=== PATIENT | male | born 1980 | race African-American/Black ===

== ENCOUNTER 2017-01-01 02:42 | Emergency (ER) ==
[2017-01-01 02:52] VITALS: BP 137/90; TEMP 97.4; BMI 32.5
[2017-01-01] MEDS ORDERED: NORFLEX IM STA (03:18)
[2017-01-01] MEDS ORDERED: TORADOL IM STA (03:18)
--- NOTE | 2017-01-01 03:24 | ED.PDOC ---
General ED Provider: Dr. SAVANAH CHINO Chief Complaint: Non-specific Complaint Stated Complaint: Pateint states that he has been having muscle spasms in legs and arms for approximately one month. The spasms started one hour ago and are more intense. States it is due to heavy lifting at work. Time Seen by Physician: 03:17 Mode of Arrival: Walk-In Information Source: Patient Exam Limitations: No limitations Nursing and Triage Documentation Reviewed and Agree: Yes Musculoskeletal Complaint Exam - Lower Extremity Complaint/Exam Location of Pain: Reports: Right, Left, Thigh Mechanism of Injury: Reports: Other (heavy lifting ) Onset/Duration: 1 month Symptoms Are: Still present Initial Severity: Moderate Current Severity: Severe Location: Reports: Diffuse Character: Reports: Spasmodic Alleviating: Reports: Rest Aggravating: Reports: Movement, Prolonged standing Able to Bear Weight: Yes Associated Signs and Symptoms: Denies: Swelling, Redness, Bruising, Fever, Weakness, Numbness, Tingling DVT Risk Factors: Reports: None Septic Arthritis Risk Factors: Reports: None Related Surgical History: Reports: None Lower Extremity Findings: Present: Limited range of motion (due to spasms ) Compartment Syndrome Risk Factors: Present: Pain. Absent: Paralysis, Pallor, Pulselessness, Paresthesias Jennifer's Sign Present: No Differential Diagnoses: Strain, Sprain Review of Systems - Review Of Systems Constitutional: Reports: No symptoms Eyes: Reports: No symptoms Ears, Nose, Mouth, Throat: Reports: No symptoms Respiratory: Reports: No symptoms Cardiac: Reports: No symptoms GI: Reports: No symptoms : Reports: No symptoms Musculoskeletal: Reports: Muscle pain Skin: Reports: No symptoms Neurological: Reports: Anxiety Endocrine: Reports: No symptoms Hematologic/Lymphatic: Reports: No symptoms All Other Systems: Reviewed and Negative Past Medical History - Past Medical History Previously Healthy: Yes Endocrine: Reports: None Cardiovascular: Reports: None Respiratory: Reports: None Hematological: Reports: None Gastrointestinal: Reports: None Genitourinary: Reports: None Neuro/Psych: Reports: None Musculoskeletal: Reports: Other Cancer: Reports: None - Surgical History General Surgical History: Reports: Orthopedic (right arm) - Family History Family History: Reports: Unknown - Social History Smoking Status: Current every day smoker Hx Substance Use: No Alcohol Screening: Occasionally - Immunizations Tetanus Shot up to Date: Yes Physical Exam - Physical Exam Appearance: Ill-appearing, Obese Ill-appearing: Mild Pain Distress: Severe Neck: Supple Respiratory: Airway patent, Breath sounds clear, Breath sounds equal, Respirations nonlabored Cardiovascular: RRR, Pulses normal, No rub, No murmur GI/: Soft, Nontender Musculoskeletal: Limited ROM (Flextion on the Lower ext causes spasms ) Skin: Warm, Dry, Normal color Neurological: Sensation intact, Motor intact, Reflexes intact, Alert, Oriented Psychiatric: Anxious Re-Evaluation - Re-Evaluation Time of Re-Evaluation: 04:28 Status: Improved Pain Level: better Critical Care Note - Critical Care Note Total Time (mins): 0 Course - Course Hematology/Chemistry: 01/01/17 03:30 01/01/17 03:30 Orders, Labs, Meds: Lab Review 01/01/17 03:30 WBC 5.35 RBC 4.30 L Hgb 12.8 L Hct 38.6 L MCV 89.8 MCH 29.8 MCHC 33.2 RDW Coeff of Caroline 12.4 Plt Count 206 Immature Gran % (Auto) 0.2 Neut % (Auto) 43.7 Lymph % (Auto) 36.3 [place] % (Auto) 9.9 Eos % (Auto) 9.0 H Baso % (Auto) 0.9 Immature Gran # (Auto) 0.0 Neut # 2.3 Lymph # 1.9 [place] # 0.5 Eos # 0.5 Baso # 0.1 Sodium 140 Potassium 4.1 Chloride 109 H Carbon Dioxide 23 Anion Gap 12.1 BUN 17 Creatinine 0.94 Estimated GFR (MDRD) 109.00 BUN/Creatinine Ratio 18.08 Glucose 98 Calcium 8.9 Magnesium 2.0 Total Bilirubin 0.41 AST 22 ALT 19 Alkaline Phosphatase 85 Total Protein 6.8 Albumin 3.5 Globulin 3.3 Albumin/Globulin Ratio 1.06 Orders Category Date Time Status CBC W/ AUTO DIFF Stat LAB 01/01/17 03:30 Completed COMPREHENSIVE METABOLIC PANEL Stat LAB 01/01/17 03:30 Completed MAGNESIUM Stat LAB 01/01/17 03:30 Completed Ketorolac Tromethamine [Toradol] MEDS 01/01/17 03:18 Discontinued 60 mg IM ONCE STA Orphenadrine Citrate [Norflex] MEDS 01/01/17 03:18 Discontinued 60 mg IM ONCE STA Medications Discontinued Medications Generic Name Dose Route Start Last Admin Trade Name Freq PRN Reason Stop Dose Admin Ketorolac Tromethamine 60 mg 01/01/17 03:18 01/01/17 03:28 Toradol IM 01/01/17 03:19 60 mg ONCE STA Administration Orphenadrine Citrate 60 mg 01/01/17 03:18 01/01/17 03:29 Norflex IM 01/01/17 03:19 60 mg ONCE STA Administration Vital Signs: Temp Pulse Resp BP Pulse Ox 01/01/17 02:44 97.4 F L 75 18 137/90 96 Departure - Departure Time of Disposition: 04:00 Disposition: HOME SELF-CARE Discharge Problem: Muscle spasm Instructions: Muscle Spasm (ED) Condition: Fair Pt referred to PMD for follow-up: Yes Additional Instructions: Rest Take medications as prescribed Follow up with PCP in 3 days Prescriptions: Cyclobenzaprine HCl [Flexeril] 10 mg PO TID PRN #20 tablet PRN Reason: Muscle spasms Ibuprofen 800 mg PO TID #30 tablet Allergies/Adverse Reactions: Allergies tramadol Adverse Reaction (Verified 01/01/17 02:52) Hives Home Medications: Ambulatory Orders Cyclobenzaprine HCl [Flexeril] 10 mg PO TID PRN #20 tablet 01/01/17 Ibuprofen 800 mg PO TID #30 tablet 01/01/17 Disposition Discussed With: Patient, Family
[2017-01-01 03:37] LABS: BASOPHILS # (AUTO) 0.1 K/uL (0-0.2); BASOPHILS % (AUTO) 0.9 % (0.0-3.0); EOSINOPHILS # (AUTO) 0.5 K/ul (0.0-0.7); HEMATOCRIT 38.6 % (42.0-52.0); HEMOGLOBIN 12.8 g/dl (14.0-18.0); IMMATURE GRANULOCYTE % (AUTO) 0.2 % (0.0-5.0); LYMPHOCYTES # (AUTO) 1.9 K/uL (0.60-3.4); LYMPHOCYTES % (AUTO) 36.3 (10.0-50.0); MEAN CORPUSCULAR HEMOGLOBIN 29.8 pg (27.0-31.0); MEAN CORPUSCULAR HGB CONC 33.2 (31.8-35.4); MEAN CORPUSCULAR VOLUME 89.8 fl (80.0-94.0); MONOCYTES # (AUTO) 0.5 K/uL (0.4-2.0); MONOCYTES % (AUTO) 9.9 (0-10); NEUTROPHILS # (AUTO) 2.3 K/ul (2.0-6.9); NEUTROPHILS % (AUTO) 43.7; PLATELET COUNT 206 10^3/uL (140-440); WHITE BLOOD COUNT 5.35 K/ul (4.2-10.2)
[2017-01-01 03:57] LABS: ALBUMIN 3.5 g/dL (3.4-5.0); ALBUMIN/GLOBULIN RATIO 1.06; ANION GAP 12.1; BILIRUBIN,TOTAL 0.41 mg/dL (0.00-1.20); BUN/CREATININE RATIO 18.08; CALCIUM 8.9 mg/dL (8.2-10.2); CREATININE 0.94 mg/dL (0.60-1.10); POTASSIUM 4.1 mmol/L (3.5-5.1); TOTAL PROTEIN 6.8 g/dL (6.4-8.2)
== END 2017-01-01 04:30 | disposition home or self-care (01) ==
LOC: ED 02:42
DX: M62.838 Other muscle spasm (principal); F17.210 Nicotine dependence, cigarettes, uncomplicated
CPT/HCPCS: 36415; 80053; 83735; 85025; 96372; 99283

== ENCOUNTER 2017-01-05 03:56 | Emergency (ER) ==
[2017-01-05 03:57] VITALS: BMI 32.5
[2017-01-05 04:05] VITALS: BP 122/78; TEMP 97.3
[2017-01-05 04:48] LABS: BASOPHILS # (AUTO) 0.1 K/uL (0-0.2); BASOPHILS % (AUTO) 1.3 % (0.0-3.0); EOSINOPHILS # (AUTO) 0.1 K/ul (0.0-0.7); EOSINOPHILS % (AUTO) 2.4 % (0.0-7.0); HEMATOCRIT 43.6 % (42.0-52.0); HEMOGLOBIN 15.1 g/dl (14.0-18.0); IMMATURE GRANULOCYTE % (AUTO) 0.2 % (0.0-5.0); LYMPHOCYTES # (AUTO) 2.5 K/uL (0.60-3.4); MEAN CORPUSCULAR HEMOGLOBIN 30.3 pg (27.0-31.0); MEAN CORPUSCULAR HGB CONC 34.6 (31.8-35.4); MEAN CORPUSCULAR VOLUME 87.4 fl (80.0-94.0); MONOCYTES # (AUTO) 0.5 K/uL (0.4-2.0); MONOCYTES % (AUTO) 9.2 (0-10); NEUTROPHILS # (AUTO) 2.2 K/ul (2.0-6.9); NEUTROPHILS % (AUTO) 40.9; PLATELET COUNT 263 10^3/uL (140-440); RED BLOOD COUNT 4.99 10^6/ul (4.70-6.10); WHITE BLOOD COUNT 5.33 K/ul (4.2-10.2)
[2017-01-05 05:07] LABS: ALBUMIN/GLOBULIN RATIO 0.98; ANION GAP 21.7; BILIRUBIN,TOTAL 0.37 mg/dL (0.00-1.20); BUN/CREATININE RATIO 14.73; CALCIUM 9.5 mg/dL (8.2-10.2); CREATININE 0.95 mg/dL (0.60-1.10); POTASSIUM 3.7 mmol/L (3.5-5.1); TOTAL PROTEIN 8.1 g/dL (6.4-8.2)
[2017-01-05 05:19] LABS: ERYTHROCYTE SEDIMENTATION RATE 20 mm/hr (0-15); ESR INTERNAL QC INTERNAL QC VALID
--- NOTE | 2017-01-05 06:33 | ED.PDOC ---
General Stated Complaint: my legs have been cramping for a month--that other doctor gave me flexeril but i couldnt afford it Time Seen by Physician: 04:00 Mode of Arrival: Walk-In Information Source: Patient Exam Limitations: No limitations Nursing and Triage Documentation Reviewed and Agree: Yes <JACQUELINE DENNIS - Last Filed: 01/05/17 06:31> <VALERIA JONES - Last Filed: 01/05/17 08:21> ED Provider: Dr. VALERIA JONES (JACQUELINE DENNIS) (VALERIA JONES) Chief Complaint: Extremity Pain/Injury Musculoskeletal Complaint Exam - Lower Extremity Complaint/Exam Location of Pain: Reports: Right, Left, Leg Mechanism of Injury: Reports: No known trauma Symptoms Are: Still present Onset of Pain: Reports: Immediate Initial Severity: Mild Current Severity: Mild Location: Reports: Discrete (bilateral legs) Character: Reports: Dull, Aching Alleviating: Reports: Rest Aggravating: Reports: None Able to Bear Weight: Yes Associated Signs and Symptoms: Denies: Swelling, Redness, Bruising, Fever, Weakness, Numbness, Tingling DVT Risk Factors: Reports: None Septic Arthritis Risk Factors: Reports: None Related Surgical History: Reports: None Lower Extremity Findings: Absent: Swelling, Ecchymosis, Abnormal contour, Rotation, Ligamentous instability, Laceration, Erythema, Warmth, Blisters, Other joint pain, Foreign body, Tenderness, Limited range of motion NV Bundle Intact Distal to Injury: No Compartment Syndrome Risk Factors: Present: Pain. Absent: Paralysis, Pallor, Pulselessness, Paresthesias Jennifer's Sign Present: No Differential Diagnoses: Other <JACQUELINE DENNIS - Last Filed: 01/05/17 06:31> Review of Systems - Review Of Systems Constitutional: Reports: No symptoms Eyes: Reports: No symptoms Ears, Nose, Mouth, Throat: Reports: No symptoms Respiratory: Reports: No symptoms Cardiac: Reports: No symptoms GI: Reports: No symptoms : Reports: No symptoms Musculoskeletal: Reports: No symptoms Skin: Reports: No symptoms Neurological: Reports: No symptoms Endocrine: Reports: No symptoms Hematologic/Lymphatic: Reports: No symptoms All Other Systems: Reviewed and Negative <JACQUELINE DENNIS - Last Filed: 01/05/17 06:31> Past Medical History - Past Medical History Previously Healthy: Yes Endocrine: Reports: None Cardiovascular: Reports: None Respiratory: Reports: None Hematological: Reports: None Gastrointestinal: Reports: None Genitourinary: Reports: None Neuro/Psych: Reports: None Musculoskeletal: Reports: Other Cancer: Reports: None - Surgical History General Surgical History: Reports: Orthopedic (right arm) - Family History Family History: Reports: Unknown - Social History Smoking Status: Current every day smoker Hx Substance Use: No Alcohol Screening: Occasionally Lives: With family - Immunizations Tetanus Shot up to Date: Yes <JEANNIEJACQUELINE - Last Filed: 01/05/17 06:31> Physical Exam - Physical Exam Appearance: Well-appearing, No pain distress, Well-nourished Pain Distress: Mild Eyes: KAVIN, EOMI, Conjunctiva clear ENT: Ears normal, Nose normal, Oropharynx normal Neck: Supple Respiratory: Airway patent, Breath sounds clear, Breath sounds equal, Respirations nonlabored Cardiovascular: RRR, Pulses normal, No rub, No murmur GI/: Soft, Nontender, No masses, Bowel sounds normal, No Organomegaly Musculoskeletal: Calf tenderness Skin: Warm, Dry, Normal color Neurological: Sensation intact, Motor intact, Reflexes intact, Cranial nerves intact, Alert, Oriented Psychiatric: Affect appropriate, Mood appropriate <JEANNIEJACQUELINE - Last Filed: 01/05/17 06:31> Physician Notification - Case Discussed Physician Notified: dr jones Time of Notification: 07:00 <JACQUELINE DENNIS - Last Filed: 01/05/17 06:31> Critical Care Note - Critical Care Note Total Time (mins): 0 <VALERIA JONES - Last Filed: 01/05/17 08:21> Course - Course Hematology/Chemistry: 01/05/17 04:47 01/05/17 04:47 <JACQUELINE DENNIS - Last Filed: 01/05/17 06:31> - Course Hematology/Chemistry: 01/05/17 04:47 01/05/17 04:47 <VALERIA JONES - Last Filed: 01/05/17 08:21> - Course Orders, Labs, Meds: Lab Review 01/05/17 04:47 WBC 5.33 RBC 4.99 Hgb 15.1 Hct 43.6 MCV 87.4 MCH 30.3 MCHC 34.6 RDW Coeff of Caroline 12.4 Plt Count 263 Immature Gran % (Auto) 0.2 Neut % (Auto) 40.9 Lymph % (Auto) 46.0 [place] % (Auto) 9.2 Eos % (Auto) 2.4 Baso % (Auto) 1.3 Immature Gran # (Auto) 0.0 Neut # 2.2 Lymph # 2.5 [place] # 0.5 Eos # 0.1 Baso # 0.1 ESR 20 H Sodium 144 Potassium 3.7 Chloride 102 Carbon Dioxide 24 Anion Gap 21.7 BUN 14 Creatinine 0.95 Estimated GFR (MDRD) 108.00 BUN/Creatinine Ratio 14.73 Glucose 107 H Calcium 9.5 Total Bilirubin 0.37 AST 22 ALT 23 Alkaline Phosphatase 90 Total Protein 8.1 Albumin 4.0 Globulin 4.1 Albumin/Globulin Ratio 0.98 Plasma/Serum Alcohol 157.3 H Orders Category Date Time Status BLOOD ALCOHOL Stat LAB 01/05/17 04:47 Completed CBC W/ AUTO DIFF Stat LAB 01/05/17 04:47 Completed COMPREHENSIVE METABOLIC PANEL Stat LAB 01/05/17 04:47 Completed ESR Stat LAB 01/05/17 04:47 Completed ULTRASOUND VENOUS SCAN HARRY LEGS [U/S VENOUS SCAN HARRY RADS 01/05/17 04:21 Taken LEGS] Stat (JACQUELINE DENNIS) (VALERIA JONES) Vital Signs: Temp Pulse Resp BP Pulse Ox 01/05/17 03:57 97.3 F L 106 H 18 122/78 96 (JACQUELINE DNENIS) (VALERIA JONES) Departure <JACQUELINE DENNIS - Last Filed: 01/05/17 06:31> - Departure Time of Disposition: 08:20 Pt referred to PMD for follow-up: No <VALERIA JONES - Last Filed: 01/05/17 08:21> - Departure Disposition: HOME SELF-CARE Discharge Problem: Pain of lower extremity Instructions: Arthralgia (ED), Leg Pain (ED) Condition: Good Additional Instructions: Please call your Family Physician as soon as possible to schedule a follow-up appointment. Allergies/Adverse Reactions: Allergies tramadol Adverse Reaction (Verified 01/05/17 04:28) Hives Home Medications: Ambulatory Orders Ibuprofen 800 mg PO TID #30 tablet 01/01/17
--- NOTE | 2017-01-05 08:22 | US ---
EXAM: Ultrasound venous Doppler bilateral lower extremity HISTORY: Leg pain COMPARISON: None TECHNIQUE: Venous duplex ultrasound of the right and left lower extremity was performed using color , guan-scale, and Doppler flow imaging. FINDINGS: There is normal color flow and guan scale appearance of the right and left common femoral , greater saphenous, profunda femoral, femoral, popliteal, peroneal, posterior tibial, and anterior tibial veins without evidence of intraluminal thrombus. Compression and augmentation is normal. No reflux is identified. IMPRESSION: No right or left lower extremity deep venous thrombosis.
== END 2017-01-05 08:30 | disposition home or self-care (01) ==
LOC: ED 03:56
DX: M79.662 Pain in left lower leg (principal); M79.661 Pain in right lower leg; R25.2 Cramp and spasm; F17.210 Nicotine dependence, cigarettes, uncomplicated
CPT/HCPCS: 36415; 80053; 80307; 85025; 85651; 99283

== ENCOUNTER 2017-01-20 12:28 | Emergency (ER) ==
[2017-01-20 12:28] VITALS: BMI 32.5
[2017-01-20 12:34] VITALS: BP 146/85; TEMP 98
--- NOTE | 2017-01-20 12:59 | ED.PDOC ---
General ED Provider: Dr. VALERIA MURRIETA Chief Complaint: Back Pain Stated Complaint: back pain Time Seen by Physician: 12:33 (seen with michael) Mode of Arrival: Walk-In Information Source: Patient Exam Limitations: No limitations Nursing and Triage Documentation Reviewed and Agree: Yes Review of Systems - Review Of Systems Constitutional: Reports: No symptoms Eyes: Reports: No symptoms Ears, Nose, Mouth, Throat: Reports: No symptoms Respiratory: Reports: No symptoms Cardiac: Reports: No symptoms GI: Reports: No symptoms : Reports: No symptoms Musculoskeletal: Reports: Back pain Skin: Reports: No symptoms Neurological: Reports: No symptoms Endocrine: Reports: No symptoms Hematologic/Lymphatic: Reports: No symptoms All Other Systems: Reviewed and Negative Past Medical History - Past Medical History Previously Healthy: Yes Endocrine: Reports: None Cardiovascular: Reports: None Respiratory: Reports: None Hematological: Reports: None Gastrointestinal: Reports: None Genitourinary: Reports: None Neuro/Psych: Reports: None Musculoskeletal: Reports: Other Cancer: Reports: None - Surgical History General Surgical History: Reports: Orthopedic (right arm) - Family History Family History: Reports: Unknown - Social History Smoking Status: Current every day smoker Hx Substance Use: No Alcohol Screening: Occasionally - Immunizations Tetanus Shot up to Date: No Physical Exam - Physical Exam Appearance: Well-appearing, No pain distress, Well-nourished Eyes: KAVIN, EOMI, Conjunctiva clear ENT: Ears normal, Nose normal, Oropharynx normal Respiratory: Airway patent, Breath sounds clear, Breath sounds equal, Respirations nonlabored Cardiovascular: RRR, Pulses normal, No rub, No murmur GI/: Soft, Nontender, No masses, Bowel sounds normal, No Organomegaly Musculoskeletal: Normal strength, ROM intact, No edema, No calf tenderness Skin: Warm, Dry, Normal color Neurological: Sensation intact, Motor intact, Reflexes intact, Cranial nerves intact, Alert, Oriented Psychiatric: Affect appropriate, Mood appropriate Critical Care Note - Critical Care Note Total Time (mins): 0 Course - Course Vital Signs: Temp Pulse Resp BP Pulse Ox 01/20/17 12:30 98 F 86 16 146/85 H 96 Departure - Departure Time of Disposition: 12:58 (michael present at all time) Disposition: HOME SELF-CARE Discharge Problem: Backache Instructions: Low Back Strain (ED), Arthralgia (ED), Back Pain (ED) Condition: Good Pt referred to PMD for follow-up: No Additional Instructions: Please call your Family Physician as soon as possible to schedule a follow-up appointment. Allergies/Adverse Reactions: Allergies tramadol Adverse Reaction (Verified 01/20/17 12:30) Hives Home Medications: Ambulatory Orders Nabumetone [Relafen] 500 mg PO BIDWM #6 tablet 01/20/17 Disposition Discussed With: Patient
== END 2017-01-20 13:09 | disposition home or self-care (01) ==
LOC: ED 12:28
DX: M54.9 Dorsalgia, unspecified (principal); F17.210 Nicotine dependence, cigarettes, uncomplicated
CPT/HCPCS: 99283

== ENCOUNTER 2017-02-13 09:37 | Emergency (ER) ==
[2017-02-13 09:37] VITALS: BMI 32.5
[2017-02-13 09:41] VITALS: BP 149/102; TEMP 97.7
--- NOTE | 2017-02-13 09:56 | ED.PDOC ---
General ED Provider: Dr. VALERIA MURRIETA Chief Complaint: Tooth Problem Stated Complaint: tootth pain Time Seen by Physician: 10:00 Mode of Arrival: Walk-In Information Source: Patient Exam Limitations: No limitations Nursing and Triage Documentation Reviewed and Agree: Yes EENT Complaint Exam - Dental/Oral Complaint/Exam Mechanism of Injury: No known trauma Symptoms Are: Still present Timing: Constant Initial Severity: Moderate Current Severity: Moderate Character: Reports: Aching, Throbbing Aggravating: Reports: Cold, Chewing Alleviating: Reports: None Associated Signs and Symptoms: Denies: Swelling, Discharge, Fever, Foul odor, Foul taste in mouth Related History: Reports: Similar episode Cardiac Risk Factors: Reports: None Dental/Oral Surgical History: Reports: None Tooth Findings: Present: Gross decay Cervical Lymphadenopathy Present: No Facial Swelling Present: No Bleeding Present: No Oropharynx Findings: Present: Clots Septal Hematoma: No Foreign Body Present: No Dysphagia Present: No Drooling Present: No Asymmetrical Tonsillar Swelling Present: No Uvula Midline: No Gayle-tonsillar Fluctuence: No Trismus Present: No Palatal Petechiae Present: No Scarlatinaform Rash Present: No Teeth Picture: 1 - decay Differential Diagnoses: Dental Caries Review of Systems - Review Of Systems Constitutional: Reports: No symptoms Eyes: Reports: No symptoms Ears, Nose, Mouth, Throat: Reports: No symptoms Respiratory: Reports: No symptoms Cardiac: Reports: No symptoms GI: Reports: No symptoms : Reports: No symptoms Musculoskeletal: Reports: No symptoms Skin: Reports: No symptoms Neurological: Reports: No symptoms Endocrine: Reports: No symptoms Hematologic/Lymphatic: Reports: No symptoms All Other Systems: Reviewed and Negative Past Medical History - Past Medical History Previously Healthy: Yes Endocrine: Reports: None Cardiovascular: Reports: None Respiratory: Reports: None Hematological: Reports: None Gastrointestinal: Reports: None Genitourinary: Reports: None Neuro/Psych: Reports: None Musculoskeletal: Reports: Other Cancer: Reports: None - Surgical History General Surgical History: Reports: Orthopedic (right arm) - Family History Family History: Reports: Unknown - Social History Smoking Status: Current every day smoker Hx Substance Use: No Alcohol Screening: Occasionally Physical Exam - Physical Exam Appearance: Well-appearing, No pain distress, Well-nourished Eyes: KAVIN, EOMI, Conjunctiva clear ENT: Ears normal, Nose normal, Oropharynx normal Respiratory: Airway patent, Breath sounds clear, Breath sounds equal, Respirations nonlabored Cardiovascular: RRR, Pulses normal, No rub, No murmur GI/: Soft, Nontender, No masses, Bowel sounds normal, No Organomegaly Musculoskeletal: Normal strength, ROM intact, No edema, No calf tenderness Skin: Warm, Dry, Normal color Neurological: Sensation intact, Motor intact, Reflexes intact, Cranial nerves intact, Alert, Oriented Psychiatric: Affect appropriate, Mood appropriate Critical Care Note - Critical Care Note Total Time (mins): 0 Course - Course Vital Signs: Temp Pulse Resp BP Pulse Ox 02/13/17 09:40 97.7 F 91 H 20 149/102 H 98 Departure - Departure Time of Disposition: 09:56 Disposition: HOME SELF-CARE Discharge Problem: Toothache Instructions: Dental Abscess (ED), Toothache (ED) Condition: Good Pt referred to PMD for follow-up: No Additional Instructions: Please call your Family Physician as soon as possible to schedule a follow-up appointment. Allergies/Adverse Reactions: Allergies tramadol Adverse Reaction (Verified 02/13/17 09:41) Hives Home Medications: Ambulatory Orders 1 [No Reported Medications] 02/13/17
== END 2017-02-13 10:15 | disposition home or self-care (01) ==
LOC: ED 09:37
DX: K08.89 Other specified disorders of teeth and supporting structures (principal); K02.7 Dental root caries; F17.210 Nicotine dependence, cigarettes, uncomplicated
CPT/HCPCS: 99282

== ENCOUNTER 2017-02-24 15:56 | Outpatient (CLI) | END 2017-02-24 15:57 | LOC: AMBL 15:56 | PROVIDERS: ATTEND Emergency Medicine | DX: M54.2 Cervicalgia (principal); M54.9 Dorsalgia, unspecified; V43.52XA Car driver injured in collision with other type car in traffic accident, initial encounter ==

== ENCOUNTER 2017-03-30 11:31 | Inpatient (IN) ==
--- NOTE | 2017-03-30 11:52 | ED.PDOC ---
General ED Provider: Dr. DAGMAR REYES JR Chief Complaint: Cough Stated Complaint: GENERAL WEAKNESS WITH COUGH SORE THROAT. CHILLS.[ End ]aching all over dysuria last night 2days 100.7 97 20 9% 132/85 5/10 Time Seen by Physician: 11:51 Mode of Arrival: Walk-In Information Source: Patient, Family Exam Limitations: No limitations Nursing and Triage Documentation Reviewed and Agree: No Review of Systems - Review Of Systems Constitutional: Reports: Chills, Fever, Malaise, Weakness Eyes: Reports: No symptoms Ears, Nose, Mouth, Throat: Reports: No symptoms Respiratory: Reports: Cough, Short of air Cardiac: Reports: No symptoms GI: Reports: No symptoms : Reports: No symptoms Musculoskeletal: Reports: Muscle pain Skin: Reports: No symptoms Neurological: Reports: No symptoms Endocrine: Reports: No symptoms Hematologic/Lymphatic: Reports: No symptoms All Other Systems: Other Past Medical History - Past Medical History Previously Healthy: Yes Endocrine: Reports: None Cardiovascular: Reports: None Respiratory: Reports: None Hematological: Reports: None Gastrointestinal: Reports: None Genitourinary: Reports: None Neuro/Psych: Reports: None Musculoskeletal: Reports: Other Cancer: Reports: None - Surgical History General Surgical History: Reports: Orthopedic (right arm) - Family History Family History: Reports: Unknown - Social History Smoking Status: Current every day smoker Hx Substance Use: No Alcohol Screening: Occasionally - Immunizations Tetanus Shot up to Date: Yes Physical Exam - Physical Exam Appearance: Ill-appearing Ill-appearing: Moderate Pain Distress: Moderate Eyes: KAVIN, EOMI, Conjunctiva clear ENT: Ears normal, Nose normal, Oropharynx normal Neck: Supple Respiratory: Airway patent, Breath sounds equal, Breath sounds diminished, Rhonchi Cardiovascular: RRR, Pulses normal, No rub, No murmur GI/: Soft, Nontender, No masses, Bowel sounds normal, No Organomegaly Musculoskeletal: Normal strength, ROM intact, No edema, No calf tenderness Skin: Warm, Dry, Normal color Neurological: Sensation intact, Motor intact, Reflexes intact, Cranial nerves intact, Alert, Oriented Psychiatric: Anxious Critical Care Note - Critical Care Note Total Time (mins): 5 Course - Course Hematology/Chemistry: 03/30/17 12:25 03/30/17 12:25 Orders, Labs, Meds: Lab Review 03/30/17 03/30/17 03/30/17 11:50 12:05 12:25 WBC 3.87 L RBC 4.42 L Hgb 13.4 L Hct 39.0 L MCV 88.2 MCH 30.3 MCHC 34.4 RDW Coeff of Caroline 12.5 Plt Count 204 Immature Gran % (Auto) 0.5 Neut % (Auto) 53.5 Lymph % (Auto) 20.2 [place] % (Auto) 22.7 H Eos % (Auto) 1.8 Baso % (Auto) 1.3 Immature Gran # (Auto) 0.0 Neut # 2.1 Lymph # 0.8 [place] # 0.9 Eos # 0.1 Baso # 0.1 Sodium 137 Potassium 3.8 Chloride 105 Carbon Dioxide 23 Anion Gap 12.8 BUN 7 Creatinine 1.01 Estimated GFR (MDRD) 100.00 BUN/Creatinine Ratio 6.93 Glucose 87 Lactic Acid Calcium 9.1 Total Bilirubin 0.61 AST 23 ALT 27 Alkaline Phosphatase 78 Total Protein 7.7 Albumin 3.8 Globulin 3.9 Albumin/Globulin Ratio 0.97 Urine Color Yellow Urine Clarity Clear Urine pH 6.0 Ur Specific Commerce 1.015 Urine Protein Negative Urine Glucose (UA) Negative Urine Ketones Negative Urine Blood 1+ Urine Nitrite Negative Urine Bilirubin Negative Urine Urobilinogen 0.2 Ur Leukocyte Esterase Negative Urine Microscopic RBC 2-5 Ur Squamous Epith Cells Not present Urine Opiates Screen Negative Ur Oxycodone Screen Negative Urine Methadone Screen Negative Ur Propoxyphene Screen Negative Ur Barbiturates Screen Negative U Tricyclic Antidepress Negative Ur Phencyclidine Scrn Negative Ur Amphetamine Screen Negative U Methamphetamines Scrn Negative U Benzodiazepines Scrn Negative Urine Cocaine Screen Negative U Cannabinoids Screen Negative Influenza A (Rapid) Negative Influenza B (Rapid) Negative 03/30/17 13:00 WBC RBC Hgb Hct MCV MCH MCHC RDW Coeff of Caroline Plt Count Immature Gran % (Auto) Neut % (Auto) Lymph % (Auto) [place] % (Auto) Eos % (Auto) Baso % (Auto) Immature Gran # (Auto) Neut # Lymph # [place] # Eos # Baso # Sodium Potassium Chloride Carbon Dioxide Anion Gap BUN Creatinine Estimated GFR (MDRD) BUN/Creatinine Ratio Glucose Lactic Acid 5.9 Calcium Total Bilirubin AST ALT Alkaline Phosphatase Total Protein Albumin Globulin Albumin/Globulin Ratio Urine Color Urine Clarity Urine pH Ur Specific Commerce Urine Protein Urine Glucose (UA) Urine Ketones Urine Blood Urine Nitrite Urine Bilirubin Urine Urobilinogen Ur Leukocyte Esterase Urine Microscopic RBC Ur Squamous Epith Cells Urine Opiates Screen Ur Oxycodone Screen Urine Methadone Screen Ur Propoxyphene Screen Ur Barbiturates Screen U Tricyclic Antidepress Ur Phencyclidine Scrn Ur Amphetamine Screen U Methamphetamines Scrn U Benzodiazepines Scrn Urine Cocaine Screen U Cannabinoids Screen Influenza A (Rapid) Influenza B (Rapid) Orders Category Date Time Status ADMIT PATIENT INPATIENT .TO [facility] (NON-MONITORED ADMISSION 03/30/17 12: 47 Active BED) ACTIVITY .Early Mobilization for VTE Prevention CARE 03/30/17 12:47 Active INTAKE & OUTPUT Q8HR CARE 03/30/17 12:47 Active VITAL SIGNS Q4HR CARE 03/30/17 12:47 Active REGULAR DIET DIETARY 03/30/17 Dinner Ordered ED IV/MEDIPORT/POWERPORT .ONCE EMERGENCY 03/30/17 12:43 Active BLOOD CULTURE Stat LAB 03/30/17 12:25 Received CBC W/ AUTO DIFF DAILY@0600 LAB 03/31/17 06:00 Ordered CBC W/ AUTO DIFF DAILY@0600 LAB 04/01/17 06:00 Ordered CBC W/ AUTO DIFF DAILY@0600 LAB 04/02/17 06:00 Ordered CBC W/ AUTO DIFF DAILY@0600 LAB 04/03/17 06:00 Ordered CBC W/ AUTO DIFF DAILY@0600 LAB 04/04/17 06:00 Ordered CBC W/ AUTO DIFF DAILY@0600 LAB 04/05/17 06:00 Ordered CBC W/ AUTO DIFF DAILY@0600 LAB 04/06/17 06:00 Ordered CBC W/ AUTO DIFF DAILY@0600 LAB 04/07/17 06:00 Ordered CBC W/ AUTO DIFF DAILY@0600 LAB 04/08/17 06:00 Ordered CBC W/ AUTO DIFF DAILY@0600 LAB 04/09/17 06:00 Ordered CBC W/ AUTO DIFF DAILY@0600 LAB 04/10/17 06:00 Ordered CBC W/ AUTO DIFF DAILY@0600 LAB 04/11/17 06:00 Ordered CBC W/ AUTO DIFF DAILY@0600 LAB 04/12/17 06:00 Ordered CBC W/ AUTO DIFF DAILY@0600 LAB 04/13/17 06:00 Ordered CBC W/ AUTO DIFF DAILY@0600 LAB 04/14/17 06:00 Ordered CBC W/ AUTO DIFF DAILY@0600 LAB 04/15/17 06:00 Ordered CBC W/ AUTO DIFF DAILY@0600 LAB 04/16/17 06:00 Ordered CBC W/ AUTO DIFF DAILY@0600 LAB 04/17/17 06:00 Ordered CBC W/ AUTO DIFF DAILY@0600 LAB 04/18/17 06:00 Ordered CBC W/ AUTO DIFF DAILY@0600 LAB 04/19/17 06:00 Ordered CBC W/ AUTO DIFF Stat LAB 03/30/17 12:25 Completed CMP [COMPREHENSIVE METABOLIC PANEL] Stat LAB 03/30/17 12:25 Completed COMPREHENSIVE METABOLIC PANEL DAILY@0600 LAB 03/31/17 06:00 Ordered COMPREHENSIVE METABOLIC PANEL DAILY@0600 LAB 04/01/17 06:00 Ordered COMPREHENSIVE METABOLIC PANEL DAILY@0600 LAB 04/02/17 06:00 Ordered COMPREHENSIVE METABOLIC PANEL DAILY@0600 LAB 04/03/17 06:00 Ordered COMPREHENSIVE METABOLIC PANEL DAILY@0600 LAB 04/04/17 06:00 Ordered COMPREHENSIVE METABOLIC PANEL DAILY@0600 LAB 04/05/17 06:00 Ordered COMPREHENSIVE METABOLIC PANEL DAILY@0600 LAB 04/06/17 06:00 Ordered COMPREHENSIVE METABOLIC PANEL DAILY@0600 LAB 04/07/17 06:00 Ordered COMPREHENSIVE METABOLIC PANEL DAILY@0600 LAB 04/08/17 06:00 Ordered COMPREHENSIVE METABOLIC PANEL DAILY@0600 LAB 04/09/17 06:00 Ordered COMPREHENSIVE METABOLIC PANEL DAILY@0600 LAB 04/10/17 06:00 Ordered COMPREHENSIVE METABOLIC PANEL DAILY@0600 LAB 04/11/17 06:00 Ordered COMPREHENSIVE METABOLIC PANEL DAILY@0600 LAB 04/12/17 06:00 Ordered COMPREHENSIVE METABOLIC PANEL DAILY@0600 LAB 04/13/17 06:00 Ordered COMPREHENSIVE METABOLIC PANEL DAILY@0600 LAB 04/14/17 06:00 Ordered COMPREHENSIVE METABOLIC PANEL DAILY@0600 LAB 04/15/17 06:00 Ordered COMPREHENSIVE METABOLIC PANEL DAILY@0600 LAB 04/16/17 06:00 Ordered COMPREHENSIVE METABOLIC PANEL DAILY@0600 LAB 04/17/17 06:00 Ordered COMPREHENSIVE METABOLIC PANEL DAILY@0600 LAB 04/18/17 06:00 Ordered COMPREHENSIVE METABOLIC PANEL DAILY@0600 LAB 04/19/17 06:00 Ordered DRUG SCREEN, URINE, RAPID Stat LAB 03/30/17 12:05 Completed LACTIC ACID Stat LAB 03/30/17 13:00 Completed MOLECULAR GROUP A STREP Stat LAB 03/30/17 11:50 Results RAPID FLU A/B Stat LAB 03/30/17 11:50 Completed SPUTUM CULTURE Stat LAB 03/30/17 12:45 Uncollected STREP SCREEN Stat LAB 03/30/17 11:50 Results UA [URINALYSIS C & S IF INDICATED] Stat LAB 03/30/17 12:05 Completed 0.9 % Sodium Chloride [Saline Flush] MEDS 03/30/17 12:43 Active 1 syr IVF PRN PRN Azithromycin Inj [Zithromax] 500 mg MEDS 03/30/17 13:00 Active 0.9 % Sodium Chloride [Sodium Chloride] 250 ml IV DAILY Ceftriaxone Sodium [Rocephin] 1 gm MEDS 03/31/17 09:00 Active 0.9 % Sodium Chloride [Sodium Chloride] 50 ml IV DAILY Sodium Chloride 0.9% [Sodium Chloride] 1,000 ml MEDS 03/30/17 12:43 Discontinued IV BOLUS RESUSCITATION STATUS Routine OTHERS 03/30/17 12:47 Ordered CHEST, 2 VIEWS PA & LAT Stat RADS 03/30/17 11:51 Completed Medications Generic Name Dose Route Start Last Admin Trade Name Freq PRN Reason Stop Dose Admin Albuterol Sulfate 1 vial 03/30/17 18:00 03/30/17 17:03 Albuterol 0.083% Neb NEB 1 vial RTQ6H VALDEZ Administration Ceftriaxone Sodium 1 gm/ 50 mls @ 75 mls/hr 03/31/17 09:00 Sodium Chloride IV DAILY VALDEZ Azithromycin 500 mg/ Sodium 250 mls @ 125 mls/hr 03/30/17 13:00 03/30/17 13: 20 Chloride IV 125 mls/hr DAILY VALDEZ Administration Ceftriaxone Sodium 1 gm/ 50 mls @ 75 mls/hr 03/30/17 18:53 Sodium Chloride IV 03/30/17 19:32 ONCE STA Potassium Chloride/Dextrose/Sod Cl 1,000 mls @ 83.001 mls/hr 03/30/17 19:00 D5%-1/2ns-Kcl 20 Meq/L Iv Malini IV .Q12H3M VALDEZ Sodium Chloride 1 syr 03/30/17 12:43 03/30/17 13:20 Saline Flush IVF 1 syr PRN PRN Administration To flush IV Discontinued Medications Generic Name Dose Route Start Last Admin Trade Name Freq PRN Reason Stop Dose Admin Sodium Chloride 1,000 mls @ 1,000 mls/hr 03/30/17 12:43 03/30/17 13:20 Sodium Chloride IV 03/30/17 13:42 1,000 mls/hr BOLUS STA Administration Vital Signs: Temp Pulse Resp BP Pulse Ox 03/30/17 11:32 100.7 F H 97 H 20 132/85 97 Departure - Departure Time of Disposition: 12:40 Disposition: ADMITTED INPATIENT Discharge Problem: Pneumonia Qualifiers: Pneumonia type: due to unspecified organism Laterality: right Lung location: middle lobe of lung Qualifier Code: (J18.1) Lobar pneumonia, unspecified organism Condition: Good Pt referred to PMD for follow-up: No (hospitalist) Allergies/Adverse Reactions: Allergies tramadol Adverse Reaction (Verified 02/13/17 09:41) Hives Home Medications: Ambulatory Orders 1 [No Reported Medications] 02/13/17
[2017-03-30 12:11] LABS: BILIRUBIN,URINE Negative (NEGATIVE); KETONES,URINE Negative (NEGATIVE); LEUKOCYTE ESTERASE ,URINE Negative (NEGATIVE); NITRITE,URINE Negative (NEGATIVE); PROTEIN,URINE Negative (NEGATIVE); URINE, BLOOD 1+ (NEGATIVE)
--- NOTE | 2017-03-30 12:14 | DI ---
EXAM: Chest two view, frontal and lateral views. HISTORY: Cough. COMPARISON: 04/23/2016, 06/01/2015. FINDINGS: Heart size is normal. There is no vascular congestion. There is linear consolidation in the left lower lobe which are new. The lungs are otherwise clear without pleural effusion or pneum othorax. No acute osseous abnormality identified. IMPRESSION: Left lower lobe pneumonia. Follow-up is recommended to confirm resolution.
[2017-03-30 12:19] LABS: ADD URINE MICROSCOPIC YES
[2017-03-30 12:23] LABS: FLU INTERNAL QC INTERNAL QC VALID; RAPID FLU A NEGATIVE (NEGATIVE); RAPID FLU B NEGATIVE (NEGATIVE)
[2017-03-30] MEDS ORDERED: SODIUM CHLORIDE 1,000 ML IV STA (12:43)
[2017-03-30 13:03] LABS: COCAIN SCREEN,URINE NEGATIVE (NEGATIVE)
[2017-03-30 13:07] LABS: BASOPHILS # (AUTO) 0.1 K/uL (0-0.2); BASOPHILS % (AUTO) 1.3 % (0.0-3.0); EOSINOPHILS # (AUTO) 0.1 K/ul (0.0-0.7); EOSINOPHILS % (AUTO) 1.8 % (0.0-7.0); HEMOGLOBIN 13.4 g/dl (14.0-18.0); IMMATURE GRANULOCYTE % (AUTO) 0.5 % (0.0-5.0); LYMPHOCYTES # (AUTO) 0.8 K/uL (0.60-3.4); LYMPHOCYTES % (AUTO) 20.2 (10.0-50.0); MEAN CORPUSCULAR HEMOGLOBIN 30.3 pg (27.0-31.0); MEAN CORPUSCULAR HGB CONC 34.4 (31.8-35.4); MEAN CORPUSCULAR VOLUME 88.2 fl (80.0-94.0); MONOCYTES # (AUTO) 0.9 K/uL (0.4-2.0); MONOCYTES % (AUTO) 22.7 (0-10); NEUTROPHILS # (AUTO) 2.1 K/ul (2.0-6.9); NEUTROPHILS % (AUTO) 53.5; PLATELET COUNT 204 10^3/uL (140-440); RED BLOOD COUNT 4.42 10^6/ul (4.70-6.10); WHITE BLOOD COUNT 3.87 K/ul (4.2-10.2)
[2017-03-30] MEDS: ZITHROMAX 500 MG in SODIUM CHLORIDE 250 ML IV SCH (13:20)
[2017-03-30 13:24] LABS: ALBUMIN 3.8 g/dL (3.4-5.0); ALBUMIN/GLOBULIN RATIO 0.97; ANION GAP 12.8; BILIRUBIN,TOTAL 0.61 mg/dL (0.00-1.20); BUN/CREATININE RATIO 6.93; CALCIUM 9.1 mg/dL (8.2-10.2); CREATININE 1.01 mg/dL (0.60-1.10); POTASSIUM 3.8 mmol/L (3.5-5.1); TOTAL PROTEIN 7.7 g/dL (6.4-8.2)
[2017-03-30 14:18] VITALS: BMI 32.8
[2017-03-30] MEDS: ALBUTEROL 0.083% NEB NEB SCH ×2 (17:03→23:05)
[2017-03-30] MEDS ORDERED: ROCEPHIN 1 GM in SODIUM CHLORIDE 50 ML IV STA (18:53)
[2017-03-30] MEDS ORDERED: ROCEPHIN ONE (18:56)
[2017-03-30] MEDS: D5%-1/2NS-KCL 20 MEQ/L IV SOL 1,000 ML IV SCH (19:04)
[2017-03-31 04:50] LABS: BASOPHILS % (AUTO) 0.6 % (0.0-3.0); EOSINOPHILS % (AUTO) 0.6 % (0.0-7.0); HEMATOCRIT 37.9 % (42.0-52.0); HEMOGLOBIN 12.9 g/dl (14.0-18.0); IMMATURE GRANULOCYTE % (AUTO) 0.6 % (0.0-5.0); MEAN CORPUSCULAR HEMOGLOBIN 30.1 pg (27.0-31.0); MEAN CORPUSCULAR VOLUME 88.3 fl (80.0-94.0); MONOCYTES # (AUTO) 0.9 K/uL (0.4-2.0); MONOCYTES % (AUTO) 27.3 (0-10); NEUTROPHILS # (AUTO) 1.2 K/ul (2.0-6.9); NEUTROPHILS % (AUTO) 37.9; PLATELET COUNT 185 10^3/uL (140-440); RED BLOOD COUNT 4.29 10^6/ul (4.70-6.10); WHITE BLOOD COUNT 3.15 K/ul (4.2-10.2)
[2017-03-31 05:11] LABS: ALBUMIN 3.4 g/dL (3.4-5.0); ALBUMIN/GLOBULIN RATIO 0.97; ANION GAP 12.9; BILIRUBIN,TOTAL 0.33 mg/dL (0.00-1.20); BUN/CREATININE RATIO 8.79; CALCIUM 8.6 mg/dL (8.2-10.2); CREATININE 0.91 mg/dL (0.60-1.10); POTASSIUM 3.9 mmol/L (3.5-5.1); TOTAL PROTEIN 6.9 g/dL (6.4-8.2)
[2017-03-31] MEDS: ALBUTEROL 0.083% NEB NEB SCH ×4 (05:19→23:00)
[2017-03-31] MEDS: D5%-1/2NS-KCL 20 MEQ/L IV SOL 1,000 ML IV SCH ×2 (06:40→21:49)
[2017-03-31] MEDS: ROCEPHIN 1 GM in SODIUM CHLORIDE 50 ML IV SCH (08:23)
--- NOTE | 2017-03-31 09:36 | HP ---
CHIEF COMPLAINT: Fever, chills and cough. SOURCE OF HISTORY: Provided by the patient and not a very reliable historian. He could not get the sequence of events. HISTORY OF PRESENT ILLNESS: The patient claimed that the problem began Thursday evening while he was sitting in the car and the car was hot. He subsequently experienced diaphoresis. Since then he had been coughing and with a hot and cold sensation and shaking chills. He also had dysuria and was urinating about every hour. He presented to the emergency room Thursday about 10:32 a.m. The patient was found to have a low grade temperature of 100.7, pulse rate 97 , respiratory rate 20, oxygen saturation 97 at room air, blood pressure 132/85. The patient's chest x-ray revealed a left lower lobe pneumonia, linear consolidation. This is new compared to the x-ray on 04/23/2016. CBC showed mild leukopenia 3,870, WBC mild anemia and markedly elevated monocytes 22.7, upper normal 10. Chemistry was unremarkable. Urinalysis showed 1+ blood, RBC 2 -5, leukocyte esterase negative, nitrite negative, no WBC, squamous epithelia cells not present. Drug screen was negative and influenza A and B rapid were negative. The emergency room physician felt that he needed to be in the hospital, so the patient was admitted with a diagnosis of left lower lobe pneumonitis. PAST PERSONAL HISTORY: The patient fell from a height about 7 or 8 years ago and had comminuted fracture of the right elbow and had surgery, elbow replacement according to him. He had no other previous medical or surgical history that is significant. FAMILY HISTORY: Mother has some heart problems. Note: Mother had [place], as well as grandmother. SOCIAL HISTORY: The patient is and resides with his . He smokes about a half a pack of cigarettes a day and drinks alcoholic beverages about one to two cans every other day and more on weekends. He denies any substance abuse. MEDICATIONS: Prior to this admission was reported as nothing, however when I talked to the patient and examined him he told me that he is taking medication for a fungus for his toes. He doesn't know the name of the medication and he had not taken it since yesterday and had been taking it either one or two months now. I told him to ask his family to bring the medication so we can record it. ALLERGIES: The patient is allergic to Tramadol. REVIEW OF SYSTEMS: CONSTITUTIONAL: The patient has fever and some chills, but no significant fatigue. DEVELOPMENT ADMINISTRATOR: No headaches, no seizure activities or syncopal episode or ataxia. VISUAL: Denies any blurred or double vision on transient loss of vision. AUDITORY: Hearing is adequate and does not have any tinnitus and no pain or drainage. RESPIRATORY: The patient does have some cough and had been coughing more in the last two days. He has some soreness in his abdomen with the cough. CARDIOVASCULAR: Denies any chest pain or chest oppression. No shortness of breath. GASTROINTESTINAL: The appetite seemed to have remained well or good. No nausea or anorexia. No abdominal pain or diarrhea. GENITOURINARY: The patient did complain of pain and frequency on urination. MUSCULOSKELETAL: Denies any significant joint pain or muscular pain, except for the left elbow. INTEGUMENT: No rash or pruritus. ENDOCRINE: Negative. HEMATOLOGIC: No history of prolonged bleeding or easy bruising. PSYCHIATRIC: Affect is acceptable. PHYSICAL EXAMINATION: GENERAL: 36 year old black male admitted to the hospital because of left lower pneumonia and fever and cough with chills. VITAL SIGNS: HEAD: Unremarkable. FACE: Symmetrical and equal with no significant tenderness in the frontal or maxillary sinus areas to palpation under pressure. EYES: Pupils equal/reactive to light. Conjunctivae not pale. Sclerae not icteric. MOUTH: Unremarkable. THROAT: No inflammation, tumors or exudate. NECK: No masses. No bruit. No tenderness. No rigidity. CHEST: Essentially symmetrical and equal with good expansion with no remarkable tenderness. LUNGS: Breath sounds are diminished in both sides. I asked the patient to take a deep breath and it seemed like he is not following well with the instructions. There are no obvious rales. HEART: Audible and regular with good tones. No murmurs. ABDOMEN: Soft with no remarkable tenderness. Bowel sounds are active. LOWER EXTREMITIES: No significant edema of the ankles or legs. The pedal pulses are present. The patient has onychomycosis of the toes, mostly at the big toe. It was when I took his socks off for the examination of the foot is when he told me that he is taking medication for the fungus. UPPER EXTREMITIES: Symmetrical and equal. ASSESSMENT: 1. LEFT LOWER LOBE PNEUMONITIS, COMMUNITY ACQUIRED PNEUMONIA AND MUST BE ATYPICAL SINCE HIS TEMPERATURE IS NOT VERY HIGH. 2. ONYCHOMYCOSIS OF TOES 3. CHRONIC TOBACCO USE AND ABUSE ONE-HALF PACK OF CIGARETTES A DAY 4. CHRONIC ETHANOL USE AND ABUSE 5. ELEVATED BMI 32.8. MTDD
[2017-03-31] MEDS: ZITHROMAX 500 MG in SODIUM CHLORIDE 250 ML IV SCH (10:10)
[2017-03-31] MEDS ORDERED: ZOFRAN 4 MG/2 ML IVP PRN (12:46)
[2017-03-31 13:23] LABS: AMYLASE 55 U/L (25-115); LIPASE 29 U/L (8-78)
[2017-03-31] MEDS ORDERED: TUSSIONEX PO STA (21:43)
[2017-04-01 05:03] LABS: BASOPHILS % (AUTO) 1.3 % (0.0-3.0); EOSINOPHILS # (AUTO) 0.1 K/ul (0.0-0.7); EOSINOPHILS % (AUTO) 2.7 % (0.0-7.0); HEMATOCRIT 37.5 % (42.0-52.0); HEMOGLOBIN 12.9 g/dl (14.0-18.0); IMMATURE GRANULOCYTE % (AUTO) 0.3 % (0.0-5.0); LYMPHOCYTES # (AUTO) 0.9 K/uL (0.60-3.4); LYMPHOCYTES % (AUTO) 30.8 (10.0-50.0); MEAN CORPUSCULAR HEMOGLOBIN 30.4 pg (27.0-31.0); MEAN CORPUSCULAR HGB CONC 34.4 (31.8-35.4); MEAN CORPUSCULAR VOLUME 88.2 fl (80.0-94.0); MONOCYTES # (AUTO) 0.6 K/uL (0.4-2.0); MONOCYTES % (AUTO) 18.4 (0-10); NEUTROPHILS # (AUTO) 1.4 K/ul (2.0-6.9); NEUTROPHILS % (AUTO) 46.5; PLATELET COUNT 180 10^3/uL (140-440); RED BLOOD COUNT 4.25 10^6/ul (4.70-6.10); WHITE BLOOD COUNT 2.99 K/ul (4.2-10.2)
[2017-04-01] MEDS: ALBUTEROL 0.083% NEB NEB SCH ×4 (05:08→23:00)
[2017-04-01 05:27] LABS: ALBUMIN 3.3 g/dL (3.4-5.0); ALBUMIN/GLOBULIN RATIO 0.89; ANION GAP 14.1; BILIRUBIN,TOTAL 0.31 mg/dL (0.00-1.20); BUN/CREATININE RATIO 5.26; CALCIUM 8.4 mg/dL (8.2-10.2); CREATININE 0.95 mg/dL (0.60-1.10); POTASSIUM 4.1 mmol/L (3.5-5.1)
[2017-04-01] MEDS: TUSSIONEX PO SCH ×3 (05:48→18:18)
[2017-04-01] MEDS: D5%-1/2NS-KCL 20 MEQ/L IV SOL 1,000 ML IV SCH (09:29)
[2017-04-01] MEDS: ROCEPHIN 1 GM in SODIUM CHLORIDE 50 ML IV SCH (09:40)
[2017-04-01] MEDS: ZITHROMAX 500 MG in SODIUM CHLORIDE 250 ML IV SCH (10:41)
--- NOTE | 2017-04-01 14:10 | DI ---
EXAM: Two views of the chest. History: Cough. Comparison: Chest radiograph 03/30/2017 Findings: Heart size is within normal limits. Increasing left lower lobe infiltrate. No appreciab le pleural fluid and no pneumothorax. No acute osseous abnormalities. Impression: Increasing left lower lobe infiltrate.
[2017-04-01] MEDS ORDERED: TYLENOL PO PRN (14:55)
[2017-04-01] MEDS: LOVENOX SUBCUT SCH (18:43)
[2017-04-01] MEDS ORDERED: ROCEPHIN 2 GM in SODIUM CHLORIDE 100 ML IV SCH (22:00)
[2017-04-01] MEDS ORDERED: ROCEPHIN ONE (22:36)
[2017-04-02] MEDS: D5%-1/2NS-KCL 20 MEQ/L IV SOL 1,000 ML IV SCH ×2 (01:04→14:38)
[2017-04-02 05:16] LABS: BASOPHILS % (AUTO) 0.5 % (0.0-3.0); HEMATOCRIT 36.6 % (42.0-52.0); HEMOGLOBIN 12.7 g/dl (14.0-18.0); LYMPHOCYTES # (AUTO) 0.9 K/uL (0.60-3.4); MEAN CORPUSCULAR HEMOGLOBIN 30.2 pg (27.0-31.0); MEAN CORPUSCULAR HGB CONC 34.7 (31.8-35.4); MEAN CORPUSCULAR VOLUME 86.9 fl (80.0-94.0); MONOCYTES # (AUTO) 0.5 K/uL (0.4-2.0); MONOCYTES % (AUTO) 22.2 (0-10); NEUTROPHILS # (AUTO) 0.7 K/ul (2.0-6.9); NEUTROPHILS % (AUTO) 33.3; PLATELET COUNT 157 10^3/uL (140-440); RED BLOOD COUNT 4.21 10^6/ul (4.70-6.10); WHITE BLOOD COUNT 2.07 K/ul (4.2-10.2)
[2017-04-02] MEDS: ALBUTEROL 0.083% NEB NEB SCH ×4 (05:20→23:02)
[2017-04-02 05:32] LABS: ALBUMIN 3.3 g/dL (3.4-5.0); ALBUMIN/GLOBULIN RATIO 0.92; ANION GAP 13.1; BILIRUBIN,TOTAL 0.31 mg/dL (0.00-1.20); BUN/CREATININE RATIO 9.8; CALCIUM 8.3 mg/dL (8.2-10.2); CREATININE 1.02 mg/dL (0.60-1.10); POTASSIUM 4.1 mmol/L (3.5-5.1); TOTAL PROTEIN 6.9 g/dL (6.4-8.2)
[2017-04-02] MEDS: TUSSIONEX PO SCH ×2 (05:41→17:33)
[2017-04-02] MEDS ORDERED: TORADOL IVP STA (08:37)
[2017-04-02] MEDS ORDERED: SOLU-CORTEF 250 MG IVP STA (08:38)
[2017-04-02] MEDS: AVELOX 400 MG in PREMIX 250 ML NS 1 BAG IV SCH ×2 (09:00→10:58)
[2017-04-02] MEDS: LOVENOX SUBCUT SCH (09:01)
--- NOTE | 2017-04-02 09:12 | PN ---
DATE OF SERVICE: 03/31/17 The patient was seen in the morning and the nurse did tell me that he had been complaining of pain. I did examine him in the room with the nurse. I made him point to where the pain is and the pain seemed to begin from the middle of the left flank radiating towards the umbilicus. The pain is intermittent and at the time I examined him initially the patient had no pain. Soon after that he had another episode of pain. ABDOMEN: Palpation of the abdomen revealed no significant tenderness and no muscular guarding. The bowel sounds were active. But because of the pain, this patient was kept NPO for further observation to see if the pain would increase. If the pain has increased in intensity and persistent, the patient would undergo further studies such as a CT scan of the abdomen and pelvis. LUNGS: Breath sounds are diminished. I don't hear any rales. I had asked the patient to take a deep breath. He seemed like he is not taking as deep as I would like him to have or maybe that is just as deep as he could get. HEART: Audible and regular with good tones. GENERAL: The patient is not dyspneic, nor tachypneic. VITAL SIGNS: At 9:38 in the morning of 03/31/2017 showed a temperature of 98.4 , pulse 77, blood pressure 136/87, respiratory rate 18, oxygen saturation 98 at room air. ADDITIONAL DICTATION I did come back to the hospital in the evening after the office and the nurse told me that the patient is feeling better with regards to the abdomen and does not have any pain. I did advise the nurse to give him a full liquid, low fat diet and see how he does. GEOFF
--- NOTE | 2017-04-02 09:31 | PCM.CONS ---
CONSULTING PROVIDER: Dr. KATHE NUNEZ ATTENDING PROVIDER: Dr. Yayo KIMBLE DATE OF SERVICE: 04/02/17 SUBJECTIVE: This 36 year old BLACK/ M was hospitalized 03/30/17. This is a black male seen in consultation due to left lower lobe pneumonia. The patient is being treated with IV antibiotics. He has leukopenia and increased monocytes. REVIEW OF SYSTEMS: CONSTITUTIONAL: Fever. No night sweats. No fatigue, malaise, lethargy. HEENT: Eyes: No visual changes. No eye pain. No eye discharge. ENT: No runny nose. No epistaxis. No sinus pain. No odynophagia. No congestion. RESPIRATORY: Cough. No hemoptysis. CARDIOVASCULAR: No angina symptoms. No CHF symptoms. Pleuritic type chest pain. No palpitations. No shortness of breath. GASTROINTESTINAL: Appetite is good. No abdominal pain. No nausea or vomiting. No diarrhea or constipation. No hematemesis. No hematochezia. GENITOURINARY: No urgency. No frequency. No dysuria. No hematuria. No obstructive symptoms. No discharge. No pain. No significant abnormal bleeding. MUSCULOSKELETAL: No musculoskeletal pain; no joint swelling. NEUROLOGICAL: Awake, alert, oriented to time, place and person. No headache. No neck pain. No syncope. No seizures. No dizziness. PSYCHIATRIC: Not anxious. No depression. No suicidal thoughts. No homicidal thoughts. SKIN: No rash. No lesions. No wounds. ENDOCRINE: No unexplained weight loss. No weight gain. HEMATOLOGIC/LYMPHATIC: No anemia. No purpura. No petechiae. No prolonged or excessive bleeding. No palpable lymph nodes. PHYSICAL EXAMINATION: GENERAL: The patient is awake, alert and oriented, lying/sitting in bed in no distress. VITAL SIGNS: Temperature 100.5 F, Pulse 85, Respiratory Rate 16, BP 107/71, Pulse Ox 96% HEENT: Head normocephalic, atraumatic. Eyes: Extraocular muscles are intact. Pupils are equal, round and reactive to light and accommodation. Ears: No lesions. Nose appeared normal. Throat: No exudate or erythema. NECK: Supple. No JVD, no carotid bruit. No lymphadenopathy or thyromegaly. LUNGS: Clear to auscultation. Percussion note normal. Chest symmetrical. HEART: S1, S2, no S3. No murmurs. No cyanosis or clubbing. No ascites. No pericardial rub. Pulses: Dorsalis pedis and posterior tibial pulses +1 both sides. ABDOMEN: Soft. Non-tender. Bowel sounds active. No CVA tenderness. No mass felt. EXTREMITIES: No edema. Full range of motion of all extremities, equal. NEUROLOGIC: No focal deficit. Cranial nerves II through XII are grossly intact. No headache, no double vision or headache. SKIN: Not dry. Intact. Turgor-normal. LYMPHATIC: No palpable lymph nodes/no lymphedema. MUSCULOSKELETAL: Normal joints with no swelling. Muscle tone is normal. LAB REVIEW: 04/02/17 05:14 04/02/17 05:14 04/02/17 05:14: WBC 2.07 L, RBC 4.21 L, Hgb 12.7 L, Hct 36.6 L, MCV 86.9, MCH 30.2, MCHC 34.7, RDW Coeff of Caroline 12.7, Plt Count 157, Immature Gran % (Auto) 0.0, Neut % (Auto) 33.3, Lymph % (Auto) 43.0, [place] % (Auto) 22.2 H, Eos % (Auto ) 1.0, Baso % (Auto) 0.5, Immature Gran # (Auto) 0.0, Neut # 0.7 L, Lymph # 0.9 , [place] # 0.5, Eos # 0.0, Baso # 0.0, Sodium 134 L, Potassium 4.1, Chloride 104, Carbon Dioxide 21, Anion Gap 13.1, BUN 10, Creatinine 1.02, Estimated GFR (MDRD ) 99.00, BUN/Creatinine Ratio 9.80, Glucose 99, Calcium 8.3, Total Bilirubin 0.31, AST 20, ALT 21, Alkaline Phosphatase 64, Total Protein 6.9, Albumin 3.3 L , Globulin 3.6, Albumin/Globulin Ratio 0.92 04/01/17 04:30: Procalcitonin 0.17 ASSESSMENT: VIRAL PNEUMONIA RECOMMENDATIONS/PLAN: 1. 125 mg Solu-Cortef 2. Toradol 30 mg IV for pleurisy, viral infection 3. Stop Azithromycin Plan and coordination of the patient's care discussed in the presence of Heavy Forger Helper and Nurse. EDUCATION: Education carried out about viral infection. Thanks for the referral. Agree with antibiotics. CONDITION: STABLE SCRIBED BY: GUILLERMO FARFAN Windows Mobile Developer scribed while in presence of service performed by Dr. KATHE NUNEZ on 04/02/17 ([id number])
--- NOTE | 2017-04-02 09:43 | PN ---
DATE OF VISIT: 04/01/17 The nurse, February, called me with regards to Mr. Saini. She told me that Mr. Saini feels that he is not getting any better and that I had not seen him. I instructed February to order a chest x-ray for comparison. The patient did have a rise in temperature early in the morning today. The patient on examination was alert and responsive and follows verbal commands. I did try to explain to him that he has a pneumonia and that pneumonia has fever. The pneumonia does not get treated completely in three days. I explained to him that we are giving him an antibiotic for community acquired pneumonia. I asked him about the comment he made that I had not seen him. I did tell him that I was there yesterday when he complained of abdominal pain and examined his abdomen with the nurse. He told me that he could not remember. I told him that is why I stopped his food then after examination for further observation. I did inform him that I am trying what I know to treat him for his pneumonia. However, if he is not satisfied on the way things are that he certainly can change physicians to his choice. LUNGS: Today, again, with no rales that I can hear. I advised him to take a big, big breath or deep one, but I am still not able to hear it well. HEART: Normal sinus rhythm. ABDOMEN: No tenderness. The bowel sounds are active. LOWER EXTREMITIES: He denies any pain in both legs. Medications were reviewed and this patient is receiving Zithromycin 500 mg daily. Ceftriaxone 1 gram IV daily and Tussionex one teaspoon twice a day. He also is receiving Dextrose 5% in 1/2 saline, plus 10 of KCL at 83 cc per hour. This patient will be given Lovenox 40 mg subcutaneously daily beginning today. The patient did spike a temperature at 10 o'clock of 102.3 and by 11:25 was 101.7. I did see him after 1 o'clock. I did review the chest x-ray and it appears to be not any better than the previous. The final reading showed increasing left lower lobe pneumonitis. The patient, however, did not take a good deep breath on this x-ray that was done today. The Procalcitonin was ordered. [facility]
--- NOTE | 2017-04-02 09:55 | PN ---
DATE OF VISIT: 04/02/17 at 8:10 a.m. The patient, when I examined him, was sitting in a chair. He denies any shortness of breath. He claimed that his appetite is decreased. VITAL SIGNS: Early this morning on 04/02/2017 showed a temperature of 100.5, pulse 85, blood pressure 107/71, respiration rate 16, oxygen saturation 96 at room air. LUNGS: Clear to auscultation, questionable rales at the left lower base. No wheezing. HEART: Audible and regular with good tones. No murmurs. LOWER EXTREMITIES: He denies any pain in the legs. LABS: The labs today showed further leukopenia now 2,070. It started at 3,870 on admission 03/30/2017. Monocytes are increased and remained increased. Electrolytes essentially unremarkable, except sodium 134, but not clinically significant. Lowest normal is 135. BUN 10, creatinine 1.02, E GFR 99. I had advised the patient that I would ask Dr. Lynne to see him along with me and manage his case with Dr. Lynne. The patient was agreeable. The influenza A and B quantitative antibody titer is still pending. The blood cultures are still negative. Sputum culture normal dany. The patient's intake at the triage showed that he had coughed for the last two days prior to presenting to the emergency room. I will try to get in touch with his to see if she could give me a further history on this patient. [facility]STCHESTERClarissa
[2017-04-02 12:19] LABS: BILIRUBIN,URINE Negative (NEGATIVE); KETONES,URINE Negative (NEGATIVE); LEUKOCYTE ESTERASE ,URINE Negative (NEGATIVE); NITRITE,URINE Negative (NEGATIVE); PH,URINE 5.5 (5-9); PROTEIN,URINE Negative (NEGATIVE); URINE, BLOOD Trace-lysed (NEGATIVE)
[2017-04-02 12:24] LABS: ADD URINE MICROSCOPIC YES
[2017-04-02] MEDS: ROCEPHIN 2 GM in SODIUM CHLORIDE 100 ML IV SCH (20:46)
[2017-04-03] MEDS: D5%-1/2NS-KCL 20 MEQ/L IV SOL 1,000 ML IV SCH (02:57)
[2017-04-03] MEDS: ALBUTEROL 0.083% NEB NEB SCH ×3 (05:03→17:28)
[2017-04-03 05:07] LABS: BASOPHILS % (AUTO) 0.8 % (0.0-3.0); EOSINOPHILS % (AUTO) 0.4 % (0.0-7.0); HEMATOCRIT 35.6 % (42.0-52.0); HEMOGLOBIN 12.2 g/dl (14.0-18.0); LYMPHOCYTES # (AUTO) 1.4 K/uL (0.60-3.4); LYMPHOCYTES % (AUTO) 55.5 (10.0-50.0); MEAN CORPUSCULAR HEMOGLOBIN 30.2 pg (27.0-31.0); MEAN CORPUSCULAR HGB CONC 34.3 (31.8-35.4); MEAN CORPUSCULAR VOLUME 88.1 fl (80.0-94.0); MONOCYTES # (AUTO) 0.6 K/uL (0.4-2.0); MONOCYTES % (AUTO) 21.7 (0-10); NEUTROPHILS # (AUTO) 0.6 K/ul (2.0-6.9); NEUTROPHILS % (AUTO) 21.6; PLATELET COUNT 156 10^3/uL (140-440); RED BLOOD COUNT 4.04 10^6/ul (4.70-6.10); WHITE BLOOD COUNT 2.54 K/ul (4.2-10.2)
[2017-04-03 05:30] LABS: ALBUMIN 3.1 g/dL (3.4-5.0); ALBUMIN/GLOBULIN RATIO 0.89; ANION GAP 12.1; BILIRUBIN,TOTAL 0.2 mg/dL (0.00-1.20); BUN/CREATININE RATIO 13.48; CALCIUM 8.1 mg/dL (8.2-10.2); CREATININE 0.89 mg/dL (0.60-1.10); POTASSIUM 4.1 mmol/L (3.5-5.1); TOTAL PROTEIN 6.6 g/dL (6.4-8.2)
[2017-04-03] MEDS: TUSSIONEX PO SCH ×2 (05:41→17:36)
[2017-04-03] MEDS: AVELOX 400 MG in PREMIX 250 ML NS 1 BAG IV SCH (09:13)
[2017-04-03] MEDS: LOVENOX SUBCUT SCH (09:16)
--- NOTE | 2017-04-03 14:13 | PCM.CONS ---
CONSULTING PROVIDER: Dr. KATHE NUNEZ ATTENDING PROVIDER: Dr. Yayo KIMBLE DATE OF SERVICE: 04/03/17 SUBJECTIVE: This 36 year old BLACK/ M was hospitalized 03/30/17. pneumonia and the patient condition has improve and feeling a lot better. he is up and about. REVIEW OF SYSTEMS: CONSTITUTIONAL: No night sweats. No fatigue, malaise, lethargy. No fever or chills. HEENT: Eyes: No visual changes. No eye pain. No eye discharge. ENT: No runny nose. No epistaxis. No sinus pain. No odynophagia. No congestion. RESPIRATORY: No cough, no congestion. No hemoptysis. CARDIOVASCULAR: No angina symptoms. No CHF symptoms. No atypical chest pain for CAD. No palpitations. No shortness of breath. GASTROINTESTINAL: No abdominal pain. No nausea or vomiting. No diarrhea or constipation. No hematemesis. No hematochezia. GENITOURINARY: No urgency. No frequency. No dysuria. No hematuria. No obstructive symptoms. No discharge. No pain. No significant abnormal bleeding. MUSCULOSKELETAL: No musculoskeletal pain; no joint swelling. NEUROLOGICAL: Awake, alert, oriented to time, place and person. No headache. No neck pain. No syncope. No seizures. No dizziness. PSYCHIATRIC: Not anxious. No depression. No suicidal thoughts. No homicidal thoughts. SKIN: No rash. No lesions. No wounds. ENDOCRINE: No unexplained weight loss. No weight gain. HEMATOLOGIC/LYMPHATIC: No anemia. No purpura. No petechiae. No prolonged or excessive bleeding. No palpable lymph nodes. PHYSICAL EXAMINATION: GENERAL: The patient is awake, alert and oriented to time, place and person. lying in bed in no distress. VITAL SIGNS: Temperature 98.4 F, Pulse 74, Respiratory Rate 18, BP 129/84, Pulse Ox 95% HEENT: Head normocephalic, atraumatic. Eyes: Extraocular muscles are intact. Pupils are equal, round and reactive to light and accommodation. Ears: No lesions. Nose appeared normal. Throat: No exudate or erythema. NECK: Supple. No JVD, no carotid bruit. No lymphadenopathy or thyromegaly. LUNGS: Clear to auscultation. Percussion note normal. Chest symmetrical. HEART: S1, S2, no S3. No murmurs. No cyanosis or clubbing. No ascites. Pulses: Dorsalis pedis and posterior tibial pulses +1 to +2 both sides. ABDOMEN: Soft. Non-tender. Bowel sounds active. No CVA tenderness. No mass felt. EXTREMITIES: No edema. Full range of motion of all extremities, equal. NEUROLOGIC: No focal deficit. Cranial nerves II through XII are grossly intact. No headache, no double vision or headache. SKIN: Not dry. Intact. Turgor-normal. LYMPHATIC: No palpable lymph nodes/no lymphedema. MUSCULOSKELETAL: Normal joints with no swelling. Muscle tone is normal. LAB REVIEW: 04/03/17 04:37 04/03/17 04:37 04/03/17 04:37: WBC 2.54 L, RBC 4.04 L, Hgb 12.2 L, Hct 35.6 L, MCV 88.1, MCH 30.2, MCHC 34.3, RDW Coeff of Caroline 12.4, Plt Count 156, Immature Gran % (Auto) 0.0, Neut % (Auto) 21.6, Lymph % (Auto) 55.5 H, [facility] % (Auto) 21.7 H, Eos % ( Auto) 0.4, Baso % (Auto) 0.8, Immature Gran # (Auto) 0.0, Neut # 0.6 L, Lymph # 1.4, Baylor # 0.6, Eos # 0.0, Baso # 0.0, Sodium 138, Potassium 4.1, Chloride 109 H, Carbon Dioxide 21, Anion Gap 12.1, BUN 12, Creatinine 0.89, Estimated GFR ( MDRD) 116.00, BUN/Creatinine Ratio 13.48, Glucose 100, Calcium 8.1 L, Total Bilirubin 0.20, AST 20, ALT 19, Alkaline Phosphatase 61, Total Protein 6.6, Albumin 3.1 L, Globulin 3.5, Albumin/Globulin Ratio 0.89 04/02/17 12:05: Urine Color Yellow, Urine Clarity Clear, Urine pH 5.5, Ur Specific [place] 1.010, Urine Protein Negative, Urine Glucose (UA) Negative, Urine Ketones Negative, Urine Blood Trace-lysed, Urine Nitrite Negative, Urine Bilirubin Negative, Urine Urobilinogen 0.2, Ur Leukocyte Esterase Negative, Urine Microscopic RBC 0-2, Ur Squamous Epith Cells Not present ASSESSMENT: 1. Pneumonia clinically resolved likely Mycoplasma RECOMMENDATIONS/PLAN: 1. Agree with present medication and antibiotics 2. 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 CONDITION: Stable SCRIBED BY: Cosmo MARTINEZ scribed while in presence of service performed by Dr. KATHE NUNEZ on 04/03/17 ([id number])
[2017-04-03] MEDS: ROCEPHIN 2 GM in SODIUM CHLORIDE 100 ML IV SCH (20:13)
[2017-04-04] MEDS: ALBUTEROL 0.083% NEB NEB SCH ×4 (00:40→17:08)
[2017-04-04 04:42] LABS: BASOPHILS % (AUTO) 0.8 % (0.0-3.0); EOSINOPHILS # (AUTO) 0.1 K/ul (0.0-0.7); EOSINOPHILS % (AUTO) 5.5 % (0.0-7.0); HEMATOCRIT 38.4 % (42.0-52.0); LYMPHOCYTES # (AUTO) 1.5 K/uL (0.60-3.4); LYMPHOCYTES % (AUTO) 64.3 (10.0-50.0); MEAN CORPUSCULAR HEMOGLOBIN 30.2 pg (27.0-31.0); MEAN CORPUSCULAR HGB CONC 33.9 (31.8-35.4); MEAN CORPUSCULAR VOLUME 89.1 fl (80.0-94.0); MONOCYTES # (AUTO) 0.4 K/uL (0.4-2.0); MONOCYTES % (AUTO) 16.8 (0-10); NEUTROPHILS # (AUTO) 0.3 K/ul (2.0-6.9); NEUTROPHILS % (AUTO) 12.6; PLATELET COUNT 157 10^3/uL (140-440); RED BLOOD COUNT 4.31 10^6/ul (4.70-6.10); WHITE BLOOD COUNT 2.38 K/ul (4.2-10.2)
[2017-04-04 05:08] LABS: ALBUMIN 3.3 g/dL (3.4-5.0); ALBUMIN/GLOBULIN RATIO 0.94; ANION GAP 13.3; BILIRUBIN,TOTAL 0.26 mg/dL (0.00-1.20); BUN/CREATININE RATIO 11.7; CALCIUM 8.4 mg/dL (8.2-10.2); CREATININE 0.94 mg/dL (0.60-1.10); POTASSIUM 4.3 mmol/L (3.5-5.1); TOTAL PROTEIN 6.8 g/dL (6.4-8.2)
[2017-04-04] MEDS: TUSSIONEX PO SCH (05:39)
[2017-04-04] MEDS: AVELOX 400 MG in PREMIX 250 ML NS 1 BAG IV SCH (08:38)
[2017-04-04] MEDS: LOVENOX SUBCUT SCH (08:38)
[2017-04-04 13:50] VITALS: BP 125/85; TEMP 97.4
--- NOTE | 2017-04-06 13:15 | CONS ---
The patient was seen on 04/02/17: Level 5 04/03/17: Intermediate Attending Dr. Agustin TELLEZ
--- NOTE | 2017-04-06 13:24 | DS ---
PATIENT IDENTIFICATION: 36 year old black male admitted to the hospital via the emergency room because of left lower lobe pneumonia. The patient presented to the emergency room because of weakness, cough, chills and fever and aching all over with dysuria the night before. However, when I questioned him the details were not very clear. He claimed that the problem began Thursday evening while he was sitting in the car and the car was hot and he subsequently experienced diaphoresis. Since then he had been coughing and alternating hot and cold sensations with shaking chills. He claimed to have dysuria and urinating every hour. The patient presented to the emergency room the next day because of the problems and was found to have left lower lobe pneumonia by x- ray with a temperature of 100.7, pulse of 97, respiratory rate 20, oxygen saturation 97 at room air. Blood pressure was 132/85. CBC showed mild leukopenia at 3,870 WBC. Urinalysis was unremarkable for what the patient had claimed to have some dysuria and frequency. Urinalysis showed RBC 2-5 with 1+ blood. Leukocyte esterase was negative. Nitrite negative. No WBC and no bacteria. HOSPITAL COURSE: The patient had a serial CBC during this admission 03/30/2017 to 04/04/17 and had a gradual decreasing leukocyte. The lowest was 2,070 and from there beginning on 04/03/2017 the WBC had been rising. It is still below normal. The monocytes also had increased, but is gradually coming down and the last one was 16.8 on 04/04/2017. Highest was 27.3. Serial CMP times five were unremarkable. There were mild changes, but not clinically significant. The amylase and lipase were normal and the Procalcitonin is 0.17. The urinalysis was repeated and the urine now showed a trace of blood, nitrite negative, leukocyte esterase negative, microscopic RBC urine 0-2, squamous epithelial cells not present. Serology chlamydia IGM normal, chlamydia IGG antibody elevated 4.51, cytomegaly virus IGG, IGM normal. Influenza A 1:32, Influenza B antibody negative. Mycoplasma IGG 378, elevated. IGM normal at less than 770. The patient was treated with Rocephin 1 gram IV and in the beginning from the emergency room 500 mg of Azithromycin daily also. The patient remained febrile until the speech therapist early intervention hours of 04/02/2017. The highest spike was on 04/01/17 102.3. No antipyretic was given to this patient. Blood cultures remained negative, as well as the sputum culture. Azithromycin was discontinued after 3 days and Avelox [address] of the Azithromycin. A repeat chest x-ray was done on 04/01/2017 and the radiologist read at increasing left lower lobe infiltrate. I had reviewed the x-ray and I felt that the patient would not take as much deep breath on this film than compared to the previous. The patient at the time of discharge was alert, ambulatory and cheerful. He claims that he is much better and doing well. I repeated the question to him. Yissel RN was also present in the room with another RN. He asked me if he could have a note for his work. I asked him where he is working and he works with a [employer]. I told him that we will be glad to give a note to him stating that he was admitted from 03/30/2017 because of pneumonia and he is not to return to work until he is cleared by the following provider at [facility]. I told him that he will be continued on one medication which he has to take every day, one a day. If he has resurgence of his problems, that he should come back to the emergency room. I again emphasized to him to take it easy since he had a pneumonia. PLAN: He was prescribed Levaquin 750 mg tablet to be taken one daily. He is to see the clinic provider at [facility] this coming Thursday. This patient probably should have a repeat chest x-ray either by Thursday or Thursday. FINAL DIAGNOSES: 1. LEFT LOWER LOBE PNEUMONITIS (COMMUNITY ACQUIRED PNEUMONIA ETIOLOGY UNDETERMINED) 2. CHRONIC TOBACCO USE AND ABUSE OF 10 CIGARETTES A DAY, PERSISTENT 3. ONYCHOMYCOSIS OF TOES AND TOENAILS 4. ELEVATED BMI MTDD
--- NOTE | 2017-04-07 12:53 | PN ---
DATE OF VISIT: 04/03/2017 The patient claims to be feeling better and actually had a desire to go home. I told him that we will see how he does tomorrow and if remains afebrile, meaning no fever, that he most likely will be discharged home. He had been afebrile since 04/02/2017 at 2 o'clock in the afternoon. His pulse had been normal and blood pressure remained normal with slight fluctuation and the respiratory 18 to 20 and oxygen saturation was between 94 to 97 at room air. The patient is more conversant today than he ever had been in the hospital. I asked him again if he feels better and he said that he feels good. He seemed disappointed that he was not discharged today. LUNGS: Still has some diminished breath sounds in both sides, but no rales. The patient is advised to take a deep breath, but for some reason he is not taking as deep as it is or maybe that what he has. The breath sounds are diminished. HEART: Normal sinus rhythm. ABDOMEN: Nontender. LEGS: No tenderness. I advised him that we probably will discharge him tomorrow if he remains afebrile and continues to feel good. GEOFF
--- NOTE | 2017-04-09 13:52 | CONS ---
CONSULTATION FOLLOW UP DATE OF CONSULTATION: 04/04/17 HISTORY OF PRESENT ILLNESS: 36 year old black male hospitalized with left lower lobe pneumonia. The patient's condition has steadily improved. He is feeling a lot better. He is laying the bed quite comfortably. He wants to go home. He is up and about with no chest pain. REVIEW OF SYSTEMS: CONSTITUTIONAL: No night sweats. He says that he does not feel fatigued. No fever or chills. HEENT: Eyes: No visual changes. No eye pain. No eye discharge. ENT: No runny nose. No epistaxis. No sinus pain. No sore throat. No odynophagia. No ear pain. No congestion. RESPIRATORY: No cough, no congestion. No hemoptysis. CARDIOVASCULAR: No angina symptoms. No CHF symptoms. No atypical chest pain for CAD. No palpitations. No shortness of breath. GASTROINTESTINAL: Appetite is better. No abdominal pain. No nausea or vomiting. No diarrhea or constipation. No hematemesis. No hematochezia. GENITOURINARY: No urgency. No frequency. No dysuria. No hematuria. No obstructive symptoms. No discharge. No pain. No significant abnormal bleeding. MUSCULOSKELETAL: No musculoskeletal pain. No joint swelling. NEUROLOGICAL: No headache. No neck pain. No syncope. No seizures. No dizziness. PSYCHIATRIC: Not anxious. No depression. No suicidal thoughts. No homicidal thoughts. SKIN: No rash. No lesions. No wounds. ENDOCRINE: No unexplained weight loss. No weight gain. HEMATOLOGIC/LYMPHATIC: No anemia. No purpura. No petechiae. No prolonged or excessive bleeding. No palpable lymph nodes. PHYSICAL EXAMINATION: GENERAL: The patient is oriented to time, place and person. Lying in the bed in no distress. VITAL SIGNS: Temperature 97.3, pulse 77, respiratory rate 18, blood pressure 118 /81, pulse ox 95%. HEENT: Head normocephalic, atraumatic. Eyes: Extraocular muscles are intact. Pupils are equal, round and reactive to light and accommodation. Ears: No lesions. Nose appeared normal. Throat: No exudate or erythema. NECK: Supple. No JVD, no carotid bruit. No lymphadenopathy or thyromegaly. LUNGS: Decreased breath sounds, but clear. Percussion note normal. Chest symmetrical. HEART: S1, S2, no S3. No murmurs. No cyanosis or clubbing. No ascites. Pulses: Dorsalis pedis and posterior tibial pulses +1 to +2 both sides. ABDOMEN: Soft. Nontender. Bowel sounds active. No CVA tenderness. No mass felt. EXTREMITIES: No edema. Full range of motion of all extremities, equal. NEUROLOGIC: No focal deficit. Cranial nerves II through XII are grossly intact. No headache, no double vision or headache. SKIN: Not dry. Intact. Turgor - normal. LYMPHATIC: No palpable lymph nodes/no lymphedema. MUSCULOSKELETAL: Normal joints with no swelling. Muscle tone is normal. LABS: Hemoglobin 13, hematocrit 38, WBC 2,300 with normal differential. Creatinine 0.9, BUN 11, potassium 4.3, glucose 96. ASSESSMENT: LEFT LOWER LOBE PNEUMONIA, LIKELY MYCOPLASMA, RESOLVED PLAN: 1. Advised to take it easy for at least a couple of weeks. 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 2. Nutrition discussed. 3. Advised to follow up with the primary MD within two to three days. CONDITION: Stable. MTDD
== END 2017-04-04 18:15 | disposition home or self-care (01) | DRG 195 ==
LOC: ED 11:31 → MEDSURG B 13:09
PROVIDERS: ADMIT General Practice; ATTEND General Practice
DX: J18.1 Lobar pneumonia, unspecified organism (principal); B96.0 Mycoplasma pneumoniae [M. pneumoniae] as the cause of diseases classified elsewhere; R06.02 Shortness of breath; R30.0 Dysuria; R50.9 Fever, unspecified; R63.8 Other symptoms and signs concerning food and fluid intake; F17.200 Nicotine dependence, unspecified, uncomplicated; F10.20 Alcohol dependence, uncomplicated; B35.1 Tinea unguium
CPT/HCPCS: 36415; 80053; 80306; 81001; 82150; 83605; 83690; 84145; 85025; 86631; 86632; 86644; 86645; 86710; 86738; 87040; 87070; 87651; 87804; 87880; 94640; 96365; 99223; 99232; 99233; 99239; 99284

== ENCOUNTER 2017-04-08 11:33 | Outpatient (CLI) ==
[2017-04-08 12:11] LABS: BILIRUBIN,URINE Negative (NEGATIVE); KETONES,URINE Negative (NEGATIVE); LEUKOCYTE ESTERASE ,URINE Negative (NEGATIVE); NITRITE,URINE Negative (NEGATIVE); PH,URINE 5.5 (5-9); PROTEIN,URINE Negative (NEGATIVE); URINE, BLOOD Trace-intact (NEGATIVE)
[2017-04-08 12:12] LABS: ADD URINE MICROSCOPIC YES
[2017-04-08 12:13] LABS: BASOPHILS % (AUTO) 0.7 % (0.0-3.0); EOSINOPHILS # (AUTO) 0.3 K/ul (0.0-0.7); HEMATOCRIT 42.1 % (42.0-52.0); HEMOGLOBIN 14.3 g/dl (14.0-18.0); IMMATURE GRANULOCYTE % (AUTO) 0.7 % (0.0-5.0); MEAN CORPUSCULAR HEMOGLOBIN 29.9 pg (27.0-31.0); MEAN CORPUSCULAR VOLUME 88.1 fl (80.0-94.0); MONOCYTES # (AUTO) 0.8 K/uL (0.4-2.0); MONOCYTES % (AUTO) 14.6 (0-10); NEUTROPHILS # (AUTO) 2.3 K/ul (2.0-6.9); PLATELET COUNT 242 10^3/uL (140-440); RED BLOOD COUNT 4.78 10^6/ul (4.70-6.10); WHITE BLOOD COUNT 5.41 K/ul (4.2-10.2)
== END 2017-04-08 11:34 | disposition home or self-care (01) ==
LOC: LAB 11:33
PROVIDERS: ATTEND Nurse Practitioner Family
DX: A74.9 Chlamydial infection, unspecified (principal); J18.9 Pneumonia, unspecified organism
CPT/HCPCS: 36415; 81001; 85025; 87800

== ENCOUNTER 2017-04-14 11:51 | Outpatient (CLI) ==
--- NOTE | 2017-04-14 12:43 | DI ---
EXAM: PA and lateral views of the chest HISTORY: Chlamydia pneumonia COMPARISON: Chest x-ray 04/01/2017 FINDINGS: The cardiomediastinal silhouette is normal. There is no pneumothorax or pleural effusion . There is no consolidation, nodule or mass. The osseous structures are unremarkable. IMPRESSION: No acute cardiopulmonary process with interval resolution of left lower lobe consolidat ion
== END 2017-04-14 11:52 | disposition home or self-care (01) ==
LOC: RAD 11:51
PROVIDERS: ATTEND Nurse Practitioner Family
DX: J18.9 Pneumonia, unspecified organism (principal)

== ENCOUNTER 2018-01-18 18:12 | Emergency (ER) ==
[2018-01-18 18:16] VITALS: BP 147/97; TEMP 97.7; BMI 32.1
--- NOTE | 2018-01-18 20:09 | ED.PDOC ---
General ED Provider: Dr. SAVANAH CHINO Chief Complaint: Respiratory Complaint Stated Complaint: Patient is a 37 year old who comes to the ER with c/o cough productive of green phlegm, nasal congestion and chest soreness. He unsure if ran a fever. states he has been taking over the counter medication but not better. Time Seen by Physician: 19:40 Mode of Arrival: Walk-In Information Source: Patient Exam Limitations: No limitations Primary Care Provider: SYLWIA MARADIAGAST. [facility] Nursing and Triage Documentation Reviewed and Agree: Yes Reviewed sepsis parameters & appropriate labs ordered?: No System Inflammatory Response Syndrome: Not Applicable Sepsis Protocol: For patient's 13 years and over: Temp is 96.8 and below OR 101 and greater Pulse >90 BPM Resp >20/minute Acutely Altered Mental Status Are patient's symptoms suggestive of a new infection, such as: -Pneumonia -Skin, Soft Tissue -Endocarditis -UTI -Bone, Joint Infection -Implantable Device -Acute Abdominal Infection -Wound Infection -Meningitis -Blood Stream Catheter Infection -Unknown System Inflammatory Response Syndrome: Not Applicable Review of Systems - Review Of Systems Constitutional: Reports: Fever Eyes: Reports: No symptoms Ears, Nose, Mouth, Throat: Reports: Nose discharge Respiratory: Reports: Cough Cardiac: Reports: No symptoms GI: Reports: No symptoms : Reports: No symptoms Musculoskeletal: Reports: No symptoms Skin: Reports: No symptoms Neurological: Reports: No symptoms Endocrine: Reports: No symptoms Hematologic/Lymphatic: Reports: No symptoms All Other Systems: Reviewed and Negative Past Medical History - Past Medical History Previously Healthy: Yes Endocrine: Reports: None Cardiovascular: Reports: None Respiratory: Reports: None Hematological: Reports: None Gastrointestinal: Reports: None Genitourinary: Reports: None Neuro/Psych: Reports: None Musculoskeletal: Reports: Other Cancer: Reports: None - Surgical History General Surgical History: Reports: Orthopedic (right arm) - Family History Family History: Reports: Unknown - Social History Smoking Status: Current every day smoker Hx Substance Use: No Alcohol Screening: Occasionally Physical Exam - Physical Exam Appearance: Ill-appearing, Well-nourished Ill-appearing: Mild Pain Distress: Mild Eyes: KAVIN, EOMI, Conjunctiva clear ENT: Ears normal, Nose normal, Oropharynx normal Neck: Supple Respiratory: Airway patent, Breath sounds clear, Breath sounds equal, Respirations nonlabored Cardiovascular: RRR, Pulses normal, No rub, No murmur GI/: Soft, Nontender, No masses, Bowel sounds normal, No Organomegaly Musculoskeletal: Normal strength, ROM intact, No edema, No calf tenderness Skin: Warm, Dry, Normal color Neurological: Sensation intact, Motor intact, Reflexes intact, Cranial nerves intact, Alert, Oriented Psychiatric: Affect appropriate, Mood appropriate Critical Care Note - Critical Care Note Total Time (mins): 0 Course - Course Orders, Labs, Meds: Lab Review 01/17/18 19:10 Influ A Molecular Assay Negative by naat Influ B Molecular Assay Negative by naat Orders Category Date Time Status FLU A/B MOLECULAR Stat LAB 01/17/18 19:10 Completed RAPID STREP SCREEN [MOLECULAR GROUP A STREP] Stat LAB 01/17/18 19:10 Completed CHEST, 2 VIEWS PA & LAT Stat RADS 01/18/18 19:02 Completed Vital Signs: Temp Pulse Resp BP Pulse Ox 01/18/18 18:14 97.7 F 77 16 147/97 H 97 Departure - Departure Time of Disposition: 20:14 Disposition: HOME SELF-CARE Discharge Problem: Bronchitis Instructions: Acute Bronchitis (ED) Condition: Stable Pt referred to PMD for follow-up: Yes IPMP verified?: Yes Additional Instructions: Stop smoking Take Mediations as prescribed Follow up with PC in 3 days Prescriptions: Azithromycin [Zithromax] 250 mg PO DIRECTED #6 tablet Allergies/Adverse Reactions: Allergies tramadol Adverse Reaction (Verified 01/18/18 18:16) Hives Home Medications: Ambulatory Orders Azithromycin [Zithromax] 250 mg PO DIRECTED #6 tablet 01/18/18 Disposition Discussed With: Patient, Family
--- NOTE | 2018-01-19 07:44 | DI ---
EXAM: Chest two views HISTORY: Cough FINDINGS: Normal cardiac and mediastinal contours. Normal pulmonary vasculature. Lungs are clear. No significant abnormality of the bony thorax. IMPRESSION: Chest radiograph within normal limits.
== END 2018-01-18 20:29 | disposition home or self-care (01) ==
LOC: ED 18:12
DX: J20.9 Acute bronchitis, unspecified (principal); F17.210 Nicotine dependence, cigarettes, uncomplicated
CPT/HCPCS: 87502; 87651; 99282

== ENCOUNTER 2018-03-25 10:51 | Emergency (ER) ==
[2018-03-25 10:57] VITALS: BP 124/75; TEMP 97; BMI 33.0
[2018-03-25] MEDS ORDERED: BOOSTRIX IM ONE (12:14)
--- NOTE | 2018-03-25 12:15 | ED.PDOC ---
General ED Provider: Dr. JACQUELINE LEDEZMA Chief Complaint: Toe Pain/Injury Stated Complaint: piece of metal in my lt foot-great toe Time Seen by Physician: 11:00 Mode of Arrival: Walk-In Information Source: Patient Exam Limitations: No limitations Nursing and Triage Documentation Reviewed and Agree: Yes Reviewed sepsis parameters & appropriate labs ordered?: Yes System Inflammatory Response Syndrome: Not Applicable Sepsis Protocol: For patient's 13 years and over: Temp is 96.8 and below OR 101 and greater Pulse >90 BPM Resp >20/minute Acutely Altered Mental Status Are patient's symptoms suggestive of a new infection, such as: -Pneumonia -Skin, Soft Tissue -Endocarditis -UTI -Bone, Joint Infection -Implantable Device -Acute Abdominal Infection -Wound Infection -Meningitis -Blood Stream Catheter Infection -Unknown System Inflammatory Response Syndrome: Not Applicable Trauma/Injury Complaint Exam - Trauma Complaint/Exam Location of Pain or Injury: Reports: LLE Mechanism of Injury: Reports: Other (puncture wound) Onset/Duration: 1 day Symptoms Are: Still present Timing of Treatment: Immediate Initial Severity: Mild Current Severity: Moderate Character: Reports: Sharp Aggravating: Reports: Movement, Weight-bearing, Ambulation Alleviating: Reports: Rest Associated Signs and Symptoms: Denies: LOC, Confusion, Memory loss, Lethargy, Vomiting, Bleeding, Bruising, Swelling, Extremity disuse, Painful respiration, Hoarseness, Dysphagia, Hemoptysis, Significant blood loss Related History: Reports: Occupational injury Penetrating Injury Risk Factors: Reports: None Skin Findings: Present: Tenderness (puncture wound) Review of Systems - Review Of Systems Constitutional: Reports: No symptoms Eyes: Reports: No symptoms Ears, Nose, Mouth, Throat: Reports: No symptoms Respiratory: Reports: No symptoms Cardiac: Reports: No symptoms GI: Reports: No symptoms : Reports: No symptoms Musculoskeletal: Reports: No symptoms Skin: Reports: No symptoms, Other (lt great toe plantar surface tenderness at site of puncture wound) Neurological: Reports: No symptoms Endocrine: Reports: No symptoms Hematologic/Lymphatic: Reports: No symptoms All Other Systems: Reviewed and Negative Past Medical History - Past Medical History Previously Healthy: Yes Endocrine: Reports: None Cardiovascular: Reports: None Respiratory: Reports: None Hematological: Reports: None Gastrointestinal: Reports: None Genitourinary: Reports: None Neuro/Psych: Reports: None Musculoskeletal: Reports: Other Cancer: Reports: None - Surgical History General Surgical History: Reports: Orthopedic (right arm) - Family History Family History: Reports: Unknown - Social History Smoking Status: Current every day smoker, Light tobacco smoker Hx Substance Use: No Alcohol Screening: Occasionally - Immunizations Tetanus Shot up to Date: No (1995) Physical Exam - Physical Exam Appearance: Well-appearing, Obese Pain Distress: Mild Eyes: KAVIN, EOMI, Conjunctiva clear ENT: Ears normal, Nose normal, Oropharynx normal Neck: Supple Respiratory: Airway patent, Breath sounds clear, Breath sounds equal, Respirations nonlabored Cardiovascular: RRR, Pulses normal, No rub, No murmur GI/: Soft, Nontender, No masses, Bowel sounds normal, No Organomegaly Musculoskeletal: Normal strength, ROM intact, No edema, No calf tenderness Skin: Warm, Dry, Normal color (Localized metalic foreign object Lt Great toe) Neurological: Sensation intact, Motor intact, Reflexes intact, Cranial nerves intact, Alert, Oriented Psychiatric: Affect appropriate Procedures - Foreign Body Removal Location of Foreign Object: Plantar aspect Lt Great Toe Foreign Object: Piece of metal Depth of Object: Superficial Type of Anesthesia: None Prep: Saline (Alcohol) Irrigation: Yes Skin Incised: Yes (18 g needle) Instruments Used: Yes: Needle Foreign Body Identified and Removed: Yes (small piece of metal approx 3 mm) Critical Care Note - Critical Care Note Total Time (mins): 0 Course - Course Orders, Labs, Meds: Orders Category Date Time Status Diphth,Pertuss(Acell),Tet Vac [Boostrix] MEDS 03/25/18 12:14 Discontinued 0.5 ml IM .ONCE ONE Medications Discontinued Medications Generic Name Dose Route Start Last Admin Trade Name Shaista PRN Reason Stop Dose Admin Diphtheria/Pertussis/Tetanus Vacc 0.5 ml 03/25/18 12:14 03/25/18 12:21 Boostrix IM 03/25/18 12:15 0.5 ml .ONCE ONE Administration Vital Signs: Temp Pulse Resp BP Pulse Ox 03/25/18 10:51 97 F L 70 16 124/75 97 Departure - Departure Time of Disposition: 12:50 Disposition: HOME SELF-CARE Discharge Problem: Puncture wound of great toe of left foot Instructions: Puncture Wound (ED) Condition: Good Pt referred to PMD for follow-up: Yes IPMP verified?: No Additional Instructions: Take meds as directed May take ibuprofen as needed for pain as needed Allergies/Adverse Reactions: Allergies tramadol Adverse Reaction (Verified 03/25/18 10:58) Hives Home Medications: Ambulatory Orders Cephalexin [Keflex] 500 mg PO BID #10 capsule 03/25/18 Disposition Discussed With: Patient
== END 2018-03-25 13:03 | disposition home or self-care (01) ==
LOC: ED 10:51
DX: S91.142A Puncture wound with foreign body of left great toe without damage to nail, initial encounter (principal); W45.8XXA Other foreign body or object entering through skin, initial encounter; F17.210 Nicotine dependence, cigarettes, uncomplicated
CPT/HCPCS: 90471; 90715; 99283

== ENCOUNTER 2018-06-23 14:13 | Emergency (ER) ==
[2018-06-23 14:17] VITALS: BP 149/95; TEMP 97.3; BMI 35.9
--- NOTE | 2018-06-23 14:44 | ED.PDOC ---
General ED Provider: Dr. VALERIA MURRIETA Chief Complaint: Hand Pain/Injury Stated Complaint: bilateral hand pain Time Seen by Physician: 14:14 (no injury seen with gladis baumann RN) Mode of Arrival: Walk-In Information Source: Patient Exam Limitations: No limitations Nursing and Triage Documentation Reviewed and Agree: Yes Does patient meet sepsis criteria?: No System Inflammatory Response Syndrome: Not Applicable Sepsis Protocol: For patient's 13 years and over: Temp is 96.8 and below OR 101 and greater Pulse >90 BPM Resp >20/minute Acutely Altered Mental Status Are patient's symptoms suggestive of a new infection, such as: -Pneumonia -Skin, Soft Tissue -Endocarditis -UTI -Bone, Joint Infection -Implantable Device -Acute Abdominal Infection -Wound Infection -Meningitis -Blood Stream Catheter Infection -Unknown Musculoskeletal Complaint Exam - Hand/Wrist Complaint/Exam Location of Pain: Reports: Right, Left, Hand Mechanism of Injury: Reports: No known trauma Onset/Duration: PAIN MEDIAN NERVE DISTRIBUTION X1 DAY Symptoms Are: Still present Initial Severity: Mild Current Severity: Mild Location: Reports: Discrete Character: Reports: Aching Alleviating: Reports: Rest Aggravating: Reports: Movement Associated Signs and Symptoms: Denies: Swelling, Redness, Bruising, Fever, Weakness, Numbness, Tingling Related History: Reports: Similar episode Dominant Hand: Right Related Surgical History: Reports: None Hand/Wrist Findings: Present: Tinel's Sign, Phalen's Sign. Absent: Swelling, Ecchymosis, Abnormal contour, Rotation, Ligamentous instability, Laceration, Subungal hematoma, Erythema, Warmth Differential Diagnoses: Compartment Syndrome Review of Systems - Review Of Systems Constitutional: Reports: No symptoms Eyes: Reports: No symptoms Ears, Nose, Mouth, Throat: Reports: No symptoms Respiratory: Reports: No symptoms Cardiac: Reports: No symptoms GI: Reports: No symptoms : Reports: No symptoms Musculoskeletal: Reports: Other (HAND PAIN) Skin: Reports: No symptoms Neurological: Reports: No symptoms Endocrine: Reports: No symptoms Hematologic/Lymphatic: Reports: No symptoms All Other Systems: Reviewed and Negative Past Medical History - Past Medical History Previously Healthy: Yes Endocrine: Reports: None Cardiovascular: Reports: None Respiratory: Reports: None Hematological: Reports: None Gastrointestinal: Reports: None Genitourinary: Reports: None Neuro/Psych: Reports: None Musculoskeletal: Reports: Other Cancer: Reports: None - Surgical History General Surgical History: Reports: Orthopedic (right arm) - Family History Family History: Reports: Unknown - Social History Smoking Status: Current every day smoker, Light tobacco smoker Hx Substance Use: No Alcohol Screening: Occasionally Physical Exam - Physical Exam Appearance: Well-appearing, No pain distress, Well-nourished Eyes: KAVIN, EOMI, Conjunctiva clear ENT: Ears normal, Nose normal, Oropharynx normal Respiratory: Airway patent, Breath sounds clear, Breath sounds equal, Respirations nonlabored Cardiovascular: RRR, Pulses normal, No rub, No murmur GI/: Soft, Nontender, No masses, Bowel sounds normal, No Organomegaly Musculoskeletal: Normal strength, ROM intact, No edema, No calf tenderness Skin: Warm, Dry, Normal color Neurological: Sensation intact, Motor intact, Reflexes intact, Cranial nerves intact, Alert, Oriented Psychiatric: Affect appropriate, Mood appropriate Critical Care Note - Critical Care Note Total Time (mins): 0 Course - Course Vital Signs: Temp Pulse Resp BP Pulse Ox 06/23/18 14:13 97.3 F L 77 18 149/95 H 95 Departure - Departure Time of Disposition: 14:43 Disposition: HOME SELF-CARE Discharge Problem: Carpal tunnel syndrome Qualifiers: Laterality: bilateral Qualified Code(s): G56.03 - Carpal tunnel syndrome, bilateral upper limbs Instructions: Paresthesia (ED), Carpal Tunnel Surgery (DC) Condition: Good Pt referred to PMD for follow-up: Yes IPMP verified?: No Additional Instructions: Please call your Family Physician as soon as possible to schedule a follow-up appointment.SEE [facility] FOR CARPAL TUNNEL EVALUATION Allergies/Adverse Reactions: Allergies tramadol Adverse Reaction (Verified 06/23/18 14:15) Hives Home Medications: Ambulatory Orders 1 [No Reported Medications] 06/23/18 Disposition Discussed With: Patient
== END 2018-06-23 14:50 | disposition home or self-care (01) ==
LOC: ED 14:13
DX: M25.542 Pain in joints of left hand (principal); M25.541 Pain in joints of right hand; G56.03 Carpal tunnel syndrome, bilateral upper limbs
CPT/HCPCS: 99282